=== PATIENT | female | born 1940 | race Caucasian/White ===

== ENCOUNTER 2019-12-18 21:44 | Inpatient (IN) | payer MEDICARE, SELFPAY ==
[2019-12-18 21:55] VITALS: BP 140/104; PULSE 112; RESP 14; TEMP 36.7; O2SAT 95; BMI 33.6
--- NOTE | 2019-12-18 22:07 | XR_ITS ---
WS: [id number] XR hip RT 2-3V wo/w pel* [id number] REASON FOR EXAM: fall FINDINGS: Degenerate changes of the right hip joint. No fractures of the hip are seen. No fractures of the visible right pelvis. There is marked osteopenic changes seen with the inferior ramus poorly identified. XR/XR hip RT 2-3V wo/w pel* [id number] IMPRESSION: No fractures of the right hip.
[2019-12-18 23:23] VITALS: BP 154/96; PULSE 117; RESP 15; O2SAT 95
[2019-12-18 23:59] VITALS: O2SAT 97
[2019-12-19] VITALS (7 sets, daily range): BP systolic 103–164; BP diastolic 56–87; PULSE 86–99; RESP 16–20; TEMP 36.4–37.1; O2SAT 91–95
--- NOTE | 2019-12-19 00:09 | ECG_ITS ---
Measurements Intervals [place] Rate: 98 P: 49 OK: 159 QRS: -30 QRSD: 104 T: 54 QT: 322 QTc: 413 SINUS RHYTHM POSSIBLE INFERIOR MYOCARDIAL INFARCTION , PROBABLY OLD [30 ms Q WAVE IN II/aVF] No previous ECG available for comparison Electronically Signed On 12-19-2019 20:04:14 CDT by Jacqueline Smith M.D. [email or web address]
--- NOTE | 2019-12-19 00:28 | CTR_ITS ---
PROCEDURE INFORMATION: Exam: CT Abdomen And Pelvis With Contrast Exam date and time: 12/19/2019 1:16 AM Age: 79 years old Clinical indication: Injury or trauma; Fall; Initial encounter; Blunt; Lower; Injury details: RT hip/pelvic pain TECHNIQUE: Imaging protocol: Computed tomography of the abdomen and pelvis with intravenous contrast. Radiation optimization: All CT scans at this facility use at least one of these dose optimization techniques: automated exposure control; mA and/or kV adjustment per patient size (includes targeted exams where dose is matched to clinical indication); or iterative reconstruction. Contrast material: OMNI 300; Contrast volume: 95 ml; Contrast route: IV; COMPARISON: CR XR hip RT 2-3V wo/w pel* [id number] 12/18/2019 10:22 PM RADIATION DOSE METRICS: Total DLP: 1087.26 mGy-cm FINDINGS: Heart: Slight cardiac prominence. Small pericardial effusion. Lungs: Calcified granuloma in the right lower lobe. Minimal stranding in the lung bases. Liver: No enhancing liver mass. Gallbladder and bile ducts: No calcified stones. No ductal dilation. Pancreas: Unremarkable pancreas. Spleen: No splenomegaly. Adrenals: No adrenal mass. Kidneys and ureters: High probability of multiple peripelvic cysts in the left renal sinus. Homogeneous water density in the 18 mm intracortical mass in the right kidney and similar low density in multiple smaller intracortical masses in the kidneys. No proximal ureteral dilatation or right hydronephrosis. Stomach and bowel: Positioning of essentially all of the stomach in the lower chest without distension. No small bowel obstruction. Slight air-fluid levels in the right colon, significance unclear. Possible developing rectal impaction. Appendix: Normal appendix. Intraperitoneal space: No free air. No significant free fluid in the peritoneal cavity. Vasculature: No aortic aneurysm or dissection. Lymph nodes: No enlarged nodes. Bladder: No obvious abnormality of the small bladder. Reproductive: Prominent decreased density measuring 25 HU within the upper endometrial cavity having a depth of 17 mm. Homogeneous water density in the 3 cm left ovarian cyst. Bones/joints: Comminuted acute fractures of the right superior and inferior pubic rami. Acute fracture line in the right sacral wing, also. No obvious transverse fracture line in the sacrum. No fractures in the acetabuli and proximal femurs. Old compression fractures. Partial bony bridging of a lower thoracic disc. Slight degeneration of other discs. Slight spondylolisthesis at L4-L5 and L5-S1. Minimal retrolisthesis at L1-L2. Soft tissues: Slight soft tissue density consistent with bruising in the subcutaneous fat in the lateral right hip region. Enlargement of the muscles in the medial right hip region, but no large hematoma in this area. Extensive extraperitoneal hematoma posterior to the lower anterior abdominal wall and anterior to the bladder along with hemorrhagic stranding in the extraperitoneal fat bilaterally along both sides of the bladder extending inferiorly along the right pelvic sidewall and posterior to the symphysis pubis. CT/CT abdomen pelvis w con* [id number] IMPRESSION: 1. Comminuted acute fractures of the right superior and inferior pubic rami associated with extensive extraperitoneal hemorrhage in the pelvis as detailed above. Acute right sacral fracture also present. 2. Positioning of essentially all of the stomach in the lower chest without strangulation. 3. Small pericardial effusion. Slight cardiac prominence. 4. Enlargement of the endometrial cavity for the patient's age containing a density of 25 HU, significance unclear. Follow-up non-emergent transvaginal pelvic sonography suggested for consideration. Left ovarian mass consistent with a simple cyst also evident. 5. Renal masses consistent with simple cysts. Other findings detailed above. Radiation Dose CTDIVOL = (mGy): DLP = 1087.26 (mGy-cm)
[2019-12-19 01:07] LABS: Hematocrit 34.7 % (37.0-47.0); Hemoglobin 11.3 g/dL (11.5-15.3); Mean Corpuscular HGB Conc 32.6 g/dL (30.0-36.0); Mean Corpuscular Hemoglobin 29.6 pg (28.0-34.0); Mean Corpuscular Volume 90.8 fL (81-99); Mean Platelet Volume 10.4 fL (7.4-10.4); Platelet Count 203 10^3/cmm (130-400); Red Blood Count 3.82 10^6/uL (4.1-5.3); Red Cell Distribution Width 12.8 % (12.1-15.1); White Blood Count 15.7 10^3/uL (4.0-10.0)
[2019-12-19 01:15] LABS: Alanine Aminotransferase 14 U/L (0-33); Albumin Level 3.9 g/dL (3.5-5.2); Alkaline Phosphatase 65 IU/L (35-105); Anion Gap 16.2 (5-19); Aspartate Amino Transferase 21 U/L (0-32); Blood Urea Nitrogen 15 mg/dL (8-23); Calcium 8.8 mg/dL (8.5-10.5); Carbon Dioxide 24 mmol/L (22-29); Chloride 106 mmol/L (98-107); Creatinine Clr Calc Pharmacy 53.9888; Glucose 160 mg/dL (65-115); Osmolality Calculated 294 mOsm/kg (285-295); Potassium 4.2 mmol/L (3.5-5.1); Sodium 142 mmol/L (136-145); Total Bilirubin 1.2 mg/dL (0.15-1.2); Total Protein 5.9 g/dL (6.6-8.7)
[2019-12-19 01:17] LABS: Troponin T (5th) Once 18 ng/mL (0-10)
[2019-12-19 01:25] LABS: Absolute Segmented Neutrophil 14.6 10/cmm (1.6-7.1); Lymphocytes 4 %; Monocytes Absolute 0.5 10^3/cmm (0.1-0.6); Segmented Neutrophils 93 %; Total Cells Counted 100 (0-100)
[2019-12-19 01:26] LABS: Platelet Estimate Normal (Normal)
[2019-12-19] MEDS: sodium chloride 0.9% 1,000 ML 999 ML IV (01:27)
[2019-12-19] MEDS: morphine 4 mg/mL SDV 1 mL IVP (01:30)
[2019-12-19] MEDS: ondansetron 2 mg/ML SDV 2 mL 4 MG IVP (01:31)
[2019-12-19] MEDS: iohexol 300 mg/mL 100 mL Btl IV (01:46)
[2019-12-19 01:49] LABS: Add Urine Microscopic? NO
--- NOTE | 2019-12-19 01:57 | ED_ITS ---
HPI - Fall General: Chief Complaint: Fall Stated Complaint: fall Time Seen by Provider: 12/18/19 22:07 History of Present Illness: HPI Narrative: 79-year-old female who fell at home, when she tripped over a step. She landed on her right hip/pelvis. She was experiencing pain, and could not bear weight. complaint: fall Onset (ago): minute(s) Fall from: standing Fall witnessed: no Place fall occurred: home Loss of consciousness: None Prolonged down time: no Symptoms prior to fall: none Context: tripped/slipped Location of injury: pelvis Location of injury - extremities: Right: thigh Quality: dull and aching Associated symptoms-after fall: Reports no associated symptoms and abdominal pain; Denies chest pain, confusion, headache(s), hematuria, neck pain or vertigo Review of Systems Const: Denies: fever or chills Eyes: Denies: change in vision ENMT: Denies: painful swallowing Card: Reports: edema; Denies: chest pain, palpitations or irregular heart rhythm Resp: Denies: shortness of breath, productive cough, non-productive cough or wheezing GI: Reports: abdominal pain; Denies: nausea, vomiting or rectal pain : Denies: painful urination, urinary frequency or blood in urine Musc: Denies: neck pain, back pain, redness or joint warmth Skin/Breast: Denies: rash, itching or redness Neuro: Denies: headache, dizziness, vertigo or confusion Psych: Denies: anxiety PFSH ED PFSH: Medical History (Updated 12/19/19 @ 04:21 by Donato Herbert DO) Aortic regurgitation Dyslipidemia Fracture of ankle Hypertension Mitral valve regurgitation Family History (Updated 12/19/19 @ 04:21 by Pérez Villatoro MD) Other CAD (coronary artery disease) Hypertension Social History Smoking and tobacco status: never smoked Physical Exam Const: GENERAL APPEARANCE: well developed ORIENTATION/CONSCIOUSNESS: Yes oriented to person, Yes oriented to place and Yes oriented to time HENMT: COMMON NORMALS: normocephalic HEAD & SCALP: normocephalic FACE & SINUS: normal facial exam NOSE: no nasal discharge Eye: COMMON NORMALS: PERRL, EOMs intact bilaterally and conjunctivae normal EYELID: eyelids normal CONJUNCTIVA: Yes conjunctivae normal PUPIL: Yes PERRL Neck/C-Spine: COMMON NORMALS: full ROM GENERAL: No tracheal deviation Chest: COMMONS NORMALS: inspection of chest normal CHEST: No tenderness Resp: COMMON NORMALS: clear to auscultation bilaterally EFFORT & INSPECTION: No tachypneic, No respiratory distress, No retractions, No uses accessory muscles and No tracheal deviation AUSCULTATION: clear to auscultation bilaterally, no rhonchi, no wheezes and lung sounds not diminished Cardio: COMMON NORMALS: regular rate and regular rhythm RATE: regular rate RHYTHM: regular rhythm HEART SOUNDS: no murmurs PERIPHERAL PULSES: radial pulses present GI: INSPECTION: No abdominal distension AUSCULTATION: No hyperactive bowel sounds and No hypoactive bowel sounds PALPATION: No guarding and No rigid PERCUSSION: no dullness to percussion and no tympanic to percussion Extremity: NARRATIVE EXTREMITY EXAM: Examination of the pelvis and right lower extremity reveals no pain on logroll testing. There is no pain on direct palpation of the hip. There is pain on palpation of the right ischium. Neuro: SENSORIUM/ORIENTATION: Yes oriented to person, Yes oriented to place and Yes oriented to time Psych: COMMON NORMALS: mental status grossly normal Skin: COMMON NORMALS: no rashes or lesions noted GENERAL SKIN EXAM: no rashes or lesions noted Course Vital Signs: Vital signs: Vital Signs Temperature 98.1 F 12/18/19 21:55 Pulse Rate 117 H 12/18/19 23:23 Respiratory Rate 18 12/19/19 01:30 Blood Pressure 154/96 12/18/19 23:23 Pulse Oximetry 97 12/18/19 23:59 MDM - Fall MDM Narrative: Medical decision making narrative: 79-year-old female. She presents after a fall at home. There was no prolonged downtime. She does have tenderness over her right pelvis. Right hip x-ray showed a likely inferior pubic ramus fracture which is confirmed by CT. Her white blood cell count is 15. Hemoglobin is 11.3. Other laboratory is benign. She is mildly tachycardic and normotensive. Her oxygen is mildly low. CT shows the superior/inferior pubic ramus fracture with an extensive amount of extraperitoneal blood. She'll be observed for PT, watch H/H, etc. Lab Data: Labs: Lab Results 12/19/19 12/19/19 12/19/19 Range/Units 00:50 00:50 00:50 WBC 15.7 H (4.0-10.0) 10^3/ uL RBC 3.82 L (4.1-5.3) 10^6/u L Hgb 11.3 L (11.5-15.3) g/dL Hct 34.7 L (37.0-47.0) % MCV 90.8 (81-99) fL MCH 29.6 (28.0-34.0) pg MCHC 32.6 (30.0-36.0) g/dL RDW 12.8 (12.1-15.1) % Plt Count 203 (130-400) 10^3/c mm MPV 10.4 (7.4-10.4) fL Total Counted 100 (0-100) Segmented Neutroph ils 93 % Lymphocytes (Manua l) 4 % Monocytes (Manual) 3.0 % Absolute Monocytes 0.5 (0.1-0.6) 10^3/c mm Platelet Estimate Normal (Normal) Sodium 142 (136-145) mmol/L Potassium 4.2 (3.5-5.1) mmol/L Chloride 106 (98-107) mmol/L Carbon Dioxide 24 (22-29) mmol/L Anion Gap 16.2 (5-19) BUN 15 (8-23) mg/dL Creatinine 0.6 (0.5-0.9) mg/dL Glucose 160 H (65-115) mg/dL Calculated Osmolal ity 294 (285-295) mOsm/k g Calcium 8.8 (8.5-10.5) mg/dL Total Bilirubin 1.2 (0.15-1.2) mg/dL AST 21 (0-32) U/L ALT 14 (0-33) U/L Alkaline Phosphata se 65 (35-105) IU/L Troponin T Gen 5 n g/L 18 H (0-10) ng/mL Total Protein 5.9 L (6.6-8.7) g/dL Albumin 3.9 (3.5-5.2) g/dL Globulin 2.0 (1.3-4.6) g/dL Urine Color (Yellow) Urine Appearance (CLEAR) Urine pH (5-7) Ur Specific Gravit y (1.005-1.030) Urine Protein (Negative) Urine Glucose (UA) (Normal) Urine Ketones (Negative) Urine Blood (Negative) Urine Nitrate (Negative) Urine Bilirubin (NEGATIVE) Urine Urobilinogen (Negative) mg/dL Ur Leukocyte Cassi ase (Negative) 12/19/19 Range/Units 01:39 WBC (4.0-10.0) 10^3/ uL RBC (4.1-5.3) 10^6/u L Hgb (11.5-15.3) g/dL Hct (37.0-47.0) % MCV (81-99) fL MCH (28.0-34.0) pg MCHC (30.0-36.0) g/dL RDW (12.1-15.1) % Plt Count (130-400) 10^3/c mm MPV (7.4-10.4) fL Total Counted (0-100) Segmented Neutroph ils % Lymphocytes (Manua l) % Monocytes (Manual) % Absolute Monocytes (0.1-0.6) 10^3/c mm Platelet Estimate (Normal) Sodium (136-145) mmol/L Potassium (3.5-5.1) mmol/L Chloride (98-107) mmol/L Carbon Dioxide (22-29) mmol/L Anion Gap (5-19) BUN (8-23) mg/dL Creatinine (0.5-0.9) mg/dL Glucose (65-115) mg/dL Calculated Osmolal ity (285-295) mOsm/k g Calcium (8.5-10.5) mg/dL Total Bilirubin (0.15-1.2) mg/dL AST (0-32) U/L ALT (0-33) U/L Alkaline Phosphata se (35-105) IU/L Troponin T Gen 5 n g/L (0-10) ng/mL Total Protein (6.6-8.7) g/dL Albumin (3.5-5.2) g/dL Globulin (1.3-4.6) g/dL Urine Color Yellow (Yellow) Urine Appearance Clear (CLEAR) Urine pH 6 (5-7) Ur Specific Gravit y 1.015 (1.005-1.030) Urine Protein Neg (Negative) Urine Glucose (UA) Norm (Normal) Urine Ketones Negative (Negative) Urine Blood Neg (Negative) Urine Nitrate Negative (Negative) Urine Bilirubin Neg (NEGATIVE) Urine Urobilinogen Norm (Negative) mg/dL Ur Leukocyte Cassi ase Negative (Negative) Discharge Plan Discharge Patient Disposition: Placed in Observation Clinical Impression: Pubic ramus fracture Qualifiers: Encounter type: initial encounter Fracture type: closed Laterality: right Qualified Code(s): S32.591A - Other specified fracture of right pubis, initial encounter for closed fracture Condition: Stable Referrals: Marybeth Gutierrez MD [Primary Care Provider] - Coding Level of Care Code ED Grease And Tallow Pumper for Chg Fwd Exam Comprehensive
[2019-12-19 02:05] LABS: Bilirubin Urine Neg (NEGATIVE); Blood Urine Neg (Negative); Glucose Urine UA Norm (Normal); Ketones Urine Negative (Negative); Leukocyte Esterase Urine Negative (Negative); Nitrate Urine Negative (Negative); Protein Urine Neg (Negative); Specific Gravity, Urine 1.015 (1.005-1.030); Urine Appearance Clear (CLEAR); Urine Color Yellow (Yellow); Urobilinogen Urine Norm (Negative); pH Urine 6 (5-7)
[2019-12-19] MEDS: sodium chloride 0.9% 1,000 ML 150 ML IV (03:48)
--- NOTE | 2019-12-19 04:16 | P.HP_ITS ---
Providers/Chief Complaint Primary Care Provider: Marybeth Gutierrez MD Chief Complaint: fall History of Present Illness Collette Lemos is a 79 year old female who does not carry any significant past medical history other than hypertension coming in after sustaining a mechanical fall. Patient is stating that around evening, she fell on stairs outside her house by losing her balance, she did not experience any seizure, chest pain, loss of consciousness. She was not able to bear weight on right leg, because of excruciating pain she came to the ER for evaluation. Diagnostics in the ER revealed tachycardia, hypertension, CT reveals superior inferior pubic rami fracture on right side with extraperitoneal hemorrhage. At the time of my interview patient is doing well, hemodynamically stable, no active pain, she is sitting in a wheelchair. She lives alone and wants to avoid rehab. Review of Systems Const: Denies: fever or chills Eyes: Denies: change in vision ENMT: Denies: throat pain Card: Denies: chest pain Resp: Denies: shortness of breath GI: Denies: abdominal pain : Denies: flank pain Musc: Reports: back pain, extremity pain, joint pain and limited range of motion; Denies: neck pain Skin/Breast: Denies: rash, itching, skin pain or new lesion Neuro: Denies: headache Psych: Denies: anxiety Endo: Denies: excessive urination Cole/Lymph: Denies: easy bruising All/Imm: Denies: hives Medications/Allergies Allergies Allergy/AdvReac Type Severity Reaction Status Date / Time No Known Allergies Allergy Verified 12/18/19 21:59 PFSH Acute PFSH: Medical History Aortic regurgitation Dyslipidemia Fracture of ankle Hypertension Mitral valve regurgitation Surgical History (Updated 12/19/19 @ 05:00 by Pérez Villatoro MD) History of arthroplasty of right ankle Family History Other CAD (coronary artery disease) Hypertension Social History Smoking and tobacco status: never smoked Alcohol intake: never Substance/Drug Use: never Lives independently: Yes Housing: House Vitals/I&O/Wt Last Vital Signs Temp 98.1 F 12/18/19 21:55 Pulse 117 H 12/18/19 23:23 Resp 18 12/19/19 01:30 BP 154/96 12/18/19 23:23 Pulse Ox 97 12/18/19 23:59 Weight last 48 hrs Weight 80.739 kg Physical Exam Narrative: EXAM NARRATIVE: Head to toe examination Very pleasant female currently sitting without active discomfort in a wheelchair Normal hemodynamics EOMI, PERRLA S1, S2 no tachycardia, grade 2/6 systolic murmur left intercostal space fourth Abdomen soft, mild petechiae around pelvic area, no active bleeding, no signs of peritonitis Neurologically nonfocal exam Lungs are clear to auscultation Dorsalis pedis pulses 1+ bilaterally Appropriate mood and affect Limited range of motion of right lower extremity Pertinent negatives No active bleeding No hemodynamic instability No active pain No pain while sitting in her wheelchair Data : 12/19/19 00:50 12/19/19 00:50 A&P Assessment and plan (1) Pubic ramus fracture: Status: Acute Qualifiers: Encounter type: initial encounter Fracture type: closed Laterality: right Qualified Code(s): S32.591A - Other specified fracture of right pubis, initial encounter for closed fracture (2) Fall (on) (from) other stairs and steps, initial encounter: Status: Acute Additional A&P Information Right-sided superior and inferior pubic rami fracture with extensive extraperitoneal hemorrhage No active pain No active hemodynamic instability Patient sustained a fall after losing her balance, she is denying history of arrhythmia, chest pain, NH or CHF or seizures Analgesia with Tylenol and morphine with bowel regimen No acute indication for orthopedic consult she might need outpatient follow-up I would avoid adding DVT prophylaxis at this point because of extraperitoneally hemorrhage, at the time of discharge she might need DVT prophylaxis Essential hypertension: I would hold her antihypertensives because of extraperitoneal hemorrhage would like to monitor for few hours and if she become s hypertensive we will consider re-adding it Hiatal hernia without active exacerbation Incidental finding of pericardial effusion no hemodynamic instability DVT prophylaxis: Because of extraperitoneal hemorrhage would avoid for now however at the time of discharge she might need prophylaxis Cardiac diet Full code Physical therapy, evaluation in the morning 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
[2019-12-19] MEDS: sennosides-docusate Tablet 1 TAB PO (08:49)
[2019-12-19 15:52] LABS: Basophils % 0.2 %; Eosinophils % 0.1 %; Hematocrit 30.9 % (37.0-47.0); Hemoglobin 9.8 g/dL (11.5-15.3); Lymphocytes # 1.2 10^3/uL (0.8-4.8); Lymphocytes % 11.3 %; Mean Corpuscular HGB Conc 31.7 g/dL (30.0-36.0); Mean Corpuscular Volume 91.4 fL (81-99); Mean Platelet Volume 10.6 fL (7.4-10.4); Monocytes # 0.6 10^3/uL (0.2-0.9); Monocytes % 5.6 %; Neutrophils # 8.8 10^3/uL (1.8-7.7); Neutrophils % 82.4 %; Nucleated Red Blood Cells % 0 %; Platelet Count 178 10^3/cmm (130-400); Red Blood Count 3.38 10^6/uL (4.1-5.3); Red Cell Distribution Width 13.2 % (12.1-15.1); White Blood Count 10.7 10^3/uL (4.0-10.0)
--- NOTE | 2019-12-19 17:01 | P.PN_ITS ---
Subjective Subjective: Interval history: Pain is currently well controlled, however does report ongoing soreness in the pelvic area.. Patient is able to ambulate within the room with the help of a walker. Hemoglobin this afternoon noted to be 9.8, dropped about 2 units since admission. No hemodynamic compromise at this present time. Hematoma at the site does not appear to have increased in size. Medications: Reviewed: Yes Vitals/I&O/Wt Last Vital Signs Temp 98.7 F 12/19/19 15: Pulse 99 12/19/19 15:27 Resp 17 12/19/19 15:27 BP 110/56 12/19/19 15: Pulse Ox 94 12/19/19 15:27 12/19/19 12/19/19 12/19/19 06:59 14:59 22:59 Intake Total 240 / 240 Balance 240 / 240 Weight last 48 hrs Weight 80.739 kg Physical Exam Narrative: EXAM NARRATIVE: GEN: Awake, alert and oriented, no acute distress CVS: S1S2 N RS: CTA B/L Abd: Soft, nt/nd , bs+ RAW HIDE TRIMMER: no focal neuro deficits Data : 12/19/19 15:29 12/19/19 00:50 A&P Assessment and plan (1) Pubic ramus fracture: Status: Acute Qualifiers: Encounter type: initial encounter Fracture type: closed Laterality: right Qualified Code(s): S32.591A - Other specified fracture of right pubis, initial encounter for closed fracture (2) Fall (on) (from) other stairs and steps, initial encounter: Status: Acute (3) Pelvic hematoma: Status: Acute Additional A&P Information # Right-sided superior and inferior pubic rami fracture Most of these above fractures tend to be osteoporotic fractures and old age. Patient sustained a fall after losing her balance, she is denying history of arrhythmia, chest pain, [place] or CHF or seizures Currently patient is able to ambulate with help of a walker. We will continue to encourage ambulation. Appreciate OT recommendations. Analgesia with Tylenol and morphine with bowel regimen. Pain is currently well controlled. #Evidence of extraperitoneal hemorrhage as a result of the fall. Hemoglobin upon presentation was around 11, dropped about 2 units since admission. While this may be effects of initial hemoconcentration given that leukocytosis was also present, however will rule out any ongoing bleed by monitoring H&H again tomorrow morning. Patient is currently hemodynamically stable. We will hold off on any transfusion at this time. #Essential hypertension: Currently blood pressure is maintained on antihypertensives. We will continue to hold. 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 DVT prophylaxis: SCDs. No pharmacological anticoagulation because of the hematoma. Cardiac diet Full code Dispo: home with [facility] Attestations Medical Necessity Statement*: 2 unit hemoglobin drop noted today, will need close monitoring of H&H tomorrow morning. Coding Level of Care Code Acute Escort Car Driver for Rhonda Miltond Diagnoses Pubic ramus fracture S32.591A Encounter type: initial encounter Fracture type: closed Laterality: right Fall (on) (from) other stairs and steps, initial encounter W10.8XXA Pelvic hematoma
[2019-12-19] MEDS: acetaminophen 325 mg Tablet 650 MG PO (19:01)
[2019-12-20] VITALS (7 sets, daily range): BP systolic 97–110; BP diastolic 56–71; PULSE 87–100; RESP 18–20; TEMP 36.6–37.6; O2SAT 90–96
[2019-12-20 05:21] LABS: Basophils % 0.2 %; Eosinophils # 0.1 10^3/uL (0.0-0.8); Eosinophils % 1.7 %; Hematocrit 27.1 % (37.0-47.0); Hemoglobin 8.5 g/dL (11.5-15.3); Lymphocytes # 1.4 10^3/uL (0.8-4.8); Lymphocytes % 20.6 %; Mean Corpuscular HGB Conc 31.4 g/dL (30.0-36.0); Mean Corpuscular Hemoglobin 28.8 pg (28.0-34.0); Mean Corpuscular Volume 91.9 fL (81-99); Mean Platelet Volume 10.4 fL (7.4-10.4); Monocytes # 0.3 10^3/uL (0.2-0.9); Monocytes % 4.8 %; Neutrophils # 4.8 10^3/uL (1.8-7.7); Neutrophils % 72.2 %; Nucleated Red Blood Cells % 0 %; Platelet Count 142 10^3/cmm (130-400); Red Blood Count 2.95 10^6/uL (4.1-5.3); Red Cell Distribution Width 13.2 % (12.1-15.1); White Blood Count 6.6 10^3/uL (4.0-10.0)
--- NOTE | 2019-12-20 08:40 | P.PN_ITS ---
Subjective Subjective: Interval history: Patient continues to have no pain with movement. Pain is present but tolerable for the most part at other times. Decreased discomfort in her lower abdomen. Did well getting up to bed side and sitting in chair as well as working with therapy. Denies any chest pain, shortness of breath or dizziness. Slept okay. No bowel movement. Medications: Reviewed: Yes Medication Review Details: Only oral medication for pain is Tylenol presently plus some IV morphine which she has not required any. On Senokot. Home meds not currently on board. Vitals/I&O/Wt Last Vital Signs Temp 98.1 F 12/20/19 07:06 Pulse 90 12/20/19 07:06 Resp 18 12/20/19 07:06 BP 110/60 12/20/19 07:06 Pulse Ox 96 12/20/19 07:06 Blood pressure has generally ranged from mid 90s to mid teens systolic over 60s to 70s diastolic for the last 24 hours 12/19/19 12/20/19 12/20/19 22:59 06:59 14:59 Intake Total 480 / 720 Output Total 400 / 400 Balance 480 / 720 -400 / 320 Weight last 48 hrs Weight 80.739 kg Physical Exam Const: OTHER: Alert, oriented x3, cooperative HENMT: OTHER: Normocephalic atraumatic Eye: OTHER: Pupils equally round and reactive to light Resp: OTHER: Clear to auscultation bilaterally rales rhonchi or wheezes noted, no accessory muscle use noted Cardio: OTHER: Regular rate and rhythm, no murmurs gallops or rubs. Pulses 2+ and equal at both feet. GI: OTHER: Abdomen soft, tender in the right lower quadrant but without rebound or guarding, positive bowel sounds : OTHER: Normal external genitalia, mild erythema in the left groin but no other evidence of rashes or bruising visible Extremity: NARRATIVE EXTREMITY EXAM: Limitation in movement right lower extremity at the hip and knee due to pain but able to move right ankle in all directions. No gross edema noted. Patient is right hand with some edema at the PIP of the fourth digit with some decreased range of motion with flexion. Neuro: OTHER: Strength is equal in both feet. Sensation is intact in both feet. Handgrip slightly decreased in the right primarily in the fourth digit th ough. Face symmetric. Skin: NARRATIVE SKIN EXAM: Bruising noted to the right hand primarily involving the fourth digit and to a lesser degree the fifth digit, extending up to the dorsum of the hand midway. Patient also has some bruising on her right forearm laterally. On her right hip, there is bruising laterally extending about care home down although it is not diffuse. No bruising on the abdomen. Data : 12/20/19 05:11 12/19/19 00:50 A&P Assessment and plan (1) Acute blood loss anemia: With continued drop in hemoglobin, related to pelvic hematoma Status: Acute (2) Pubic ramus fracture: Superior and inferior pubic rami on the right fractures, along with right sacral fracture Status: Acute Qualifiers: Encounter type: initial encounter Fracture type: closed Laterality: right Qualified Code(s): S32.591A - Other specified fracture of right pubis, initial encounter for closed fracture (3) Fall (on) (from) other stairs and steps, initial encounter: mechanical, no signs of proceeding signs or symptoms Status: Acute (4) Pelvic hematoma: Related to fall/fracture Status: Acute (5) Hypertension: Chronically on Benicar HCT Status: Chronic Qualifiers: Hypertension type: essential hypertension Qualified Code(s): I10 - Essential (primary) hypertension (6) Dyslipidemia: chronically on krill oil Status: Chronic Additional A&P Information Chronic benzodiazepine use at bedtime Continue PT and OT Serial H&H, if continues to drop we will need to consider reimaging, does not currently need transfusion Review of home medications, will likely only resume alprazolam but changed to as needed and hold antihypertensive, fish oil and co-Q10 Does not sound like low blood pressure contributed to fall but something to keep in mind Will need arrangements for walker at home as well as some home health for evaluation of other potential safety measures. She does have a bedside commode from prior family needs. Her granddaughter will come and stay with her for safety. DVT prophylaxis: SCDS, no pharmacological prophylaxis due to hematoma Full code Cardiac diet No Méndez or linezs Dispo: home with [facility] Attestations Medical Necessity Statement*: With continued drop in hemoglobin, will change to inpatient status and continue to monitor. Risk of continued decline in hemoglobin and associated complications. Coding Level of Care Code Acute Statistician Theoretical for Nancy Orozco Diagnoses Acute blood loss anemia D62 Pubic ramus fracture S32.591A Encounter type: initial encounter Fracture type: closed Laterality: right Fall (on) (from) other stairs and steps, initial encounter W10.8XXA Pelvic hematoma Hypertension I10 Hypertension type: essential hypertension Dyslipidemia E78.5
[2019-12-20] MEDS: sennosides-docusate Tablet 1 TAB PO (09:14)
--- NOTE | 2019-12-20 10:30 | PC.CHAP ---
Pastoral Care Encounter/Spiritual Assessment Type of Contact [] Declined casting machine control board operator visit [] Patient/Family/Request visit [] Outpatient visit [] Follow-up visit [] Physician referral [] Code/Alert [x] Routine visit [] Staff referral [] Actively dying [] Patient sleeping [] Family support [] [] Out of room [] Palliative care [] [] Receiving care in room [] Pre-surgical visit [] Trauma [] Long length of stay [] ICU visit [] Other: Relational/Emotional Strength [] Patient feels connected with others/family/visitors/staff [] Distress [] Loneliness/isolation [] Abandonment Spirituality of Patient [] Person of Latanya [] Attends Yarsani of their Latanya [x] Believes in Prayer [] Reads Bible or Muslim materials [] There are Spiritual issues to be addressed Economic Adviser Interventions [x] Prayer [] Active listening [] Non-anxious presence [] Spiritual/emotional support [] Crisis/trauma care [] Spiritual counseling [] Bereavement support [] Provided bereavement packet [] Provided Bible/devotional materials [] Provided toy/stuffed animal, coloring book to patient or family member [] Provided Communion [] Anointing/[place] [] Salvation [x] Completed spiritual assessment [] Other: Impact on Illness or Injury [] Angry [] Fearful [x] Anxious [] Often cries [] Exhaustion [] Unable to work [] Unable to attend methodist [] Unable to walk/stand [] Unable to read [] Unable to drive [] Unable to eat/drink [] Unable to sleep [] Unable to be with family [] Patient intubated [] Other: Summary Patient setting in chair having breakfast. Patient feeling stronger. Showing concern regarding fractured pelvis, but believing in full recovery Time spent with patient 20 min
[2019-12-20 14:41] LABS: Basophils % 0.2 %; Eosinophils # 0.1 10^3/uL (0.0-0.8); Eosinophils % 1.7 %; Hematocrit 29.8 % (37.0-47.0); Hemoglobin 9.4 g/dL (11.5-15.3); Lymphocytes % 11.7 %; Mean Corpuscular HGB Conc 31.5 g/dL (30.0-36.0); Mean Corpuscular Hemoglobin 29.7 pg (28.0-34.0); Mean Platelet Volume 10.5 fL (7.4-10.4); Monocytes # 0.5 10^3/uL (0.2-0.9); Monocytes % 6.3 %; Neutrophils # 6.5 10^3/uL (1.8-7.7); Neutrophils % 79.4 %; Nucleated Red Blood Cells % 0 %; Platelet Count 168 10^3/cmm (130-400); Red Blood Count 3.17 10^6/uL (4.1-5.3); Red Cell Distribution Width 13.3 % (12.1-15.1); White Blood Count 8.2 10^3/uL (4.0-10.0)
--- NOTE | 2019-12-20 14:47 | PC.OT ---
Patient laying in bed upon therapist's entry. Patient reports that she just got back into bed after finishing with physical therapy, and requests treatment be deferred until after she has had time to rest, even if that means waiting until tomorrow morning to receive treatment. Patient reports interest in learning more about use of hip kit, as well as having wheeled walker ordered for her discharge home. Will plan to treat patient tomorrow in the A.M.
--- NOTE | 2019-12-20 17:20 | P.CONIM_ITS ---
Providers/Reason For Consult Consulting Physican/Specialty*: Ronald Jeffrey, orthopedic surgery Reason for Consult*: Pelvic fracture Attending Physician: Keri Tam MD Primary Care Provider: Marybeth Gutierrez MD History of Present Illness History of Present Illness Collette Lemos is a 79 year old female really with no significant medical history. She reportedly fell outside her home on a step landing on her right side with immediate pain. She was brought to the emergency room where radiographs revealed fractures of her pelvis and superior and inferior pubic rami. She was admitted for pain management and physical therapy. He was mobilized today to a chair and able to take a few steps up. She lives at home alone but states she has family who will build to come stay with her Meds/Allergies Home Medications and Allergies Home Medications Medication Instructions Recorded Confirmed Last Taken Type alprazolam 0.25 mg PO QPM 12/19/19 12/19/19 Unknown History coenzyme Q10 [CoQ-10] 100 mg PO DAILY 12/19/19 12/19/19 Unknown History flvua-[id number]-mhk-gts-wmhvknj-ast 1 cap PO DAILY 12/19/19 12/19/19 Unknown History [MegaRed [place]-3 Krill Oil] olmesartan-hydrochlorothiazide 1 tab PO QPM 12/19/19 12/19/19 12/18/19 16:00 History [Benicar HCT] Allergies Allergy/AdvReac Type Severity Reaction Status Date / Time No Known Allergies Allergy Verified 12/18/19 21:59 Current Medications Current Medications Generic Name Dose Route Start Last Admin Trade Name Freq PRN Reason Stop Dose Admin Acetaminophen 650 mg 12/19/19 05:01 12/19/19 19:01 Tylenol PO 650 mg Q4H PRN Administration mild pain Senna/Docusate Sodium 1 tab 12/19/19 09:00 12/20/19 09:14 Senna-S PO 1 tab DAILY RADHA Administration PFSH Acute PFSH: Medical History (Updated 12/20/19 @ 17:25 by Ronald Jeffrey MD) Aortic regurgitation Dyslipidemia Hypertension Mitral valve regurgitation Surgical History (Updated 12/20/19 @ 08:57 by Keri Tam MD) History of arthroplasty of right ankle due to fracture Family History Other CAD (coronary artery disease) Hypertension Social History Smoking and tobacco status: never smoked Alcohol intake: never Substance/Drug Use: never Lives independently: Yes Housing: House Vitals/I&O/Wt Last Vital Signs Temp 98.5 F 12/20/19 15:09 Pulse 98 12/20/19 15:09 Resp 20 H 12/20/19 15:09 BP 103/71 12/20/19 15:09 Pulse Ox 94 12/20/19 15:09 12/20/19 12/20/19 12/20/19 06:59 14:59 22:59 Intake Total 720 / 720 Output Total 400 / 400 Balance -400 / 320 720 / 720 Weight last 48 hrs Weight 178 lb Physical Exam Narrative: EXAM NARRATIVE: The patient is a pleasant female supine in bed in no obvious distress. She answers questions appropriately. I can appreciate no instability of her pelvis with open book stress testing. There is no vertical instability I can appreciate. She has pain with extremes of motion of the right hip. She has tenderness to palpation over right anterior hip and over her right posterior sacrum she has a palpable dorsalis pedis pulse bilaterally and her sensation is intact in both lower extremities bilaterally. There is no tenderness or pain with range of motion of her upper extremities. She has no tenderness over her cervical thoracic or lumbar spine. Data Imaging^: Xray Ortho: My impression: I reviewed his CT scan of the pelvis dated 12/19/2019. The patient has fractures of her right superior and inferior pubic rami and a nondisplaced fracture right sacral ala. There is really no significant displacement I can see. She is noted to have extensive hematoma formation, extraperoteoneal.her pubic rami. A&P Assessment and plan (1) Multiple closed pelvic fractures without disruption of pelvic ring: The patient's fracture appears to be stable on physical exam and with radiographs. I recommended continued mobilization as tolerated. She may likely need group home transfer Status: Acute (2) Pelvic hematoma: Patient has a hematoma associate with a fracture and has had a drop in her hemoglobin. I suspect the bleeding is predominantly veinous and should subside. Certainly the absence of displacement I would not anticipate more aggressive procedures being required. Status: Acute Consult Attestations Medical Necessity Statement: Patient with pain with mobilization and unable to bear weight. May ultimately require group home placement Coding Level of Care Code Acute Field Placement Director for Chg Fwd Diagnoses Multiple closed pelvic fractures without disruption of pelvic ring S32.82XA Pelvic hematoma
[2019-12-21] VITALS: BP 107/69; PULSE 105; RESP 20; TEMP 36.9; O2SAT 94
[2019-12-21 04:00] VITALS: BP 112/71; PULSE 97; RESP 20; TEMP 36.8; O2SAT 95
[2019-12-21 05:21] LABS: Basophils % 0.2 %; Eosinophils # 0.2 10^3/uL (0.0-0.8); Eosinophils % 2.5 %; Hematocrit 25.7 % (37.0-47.0); Hemoglobin 8.3 g/dL (11.5-15.3); Lymphocytes # 1.2 10^3/uL (0.8-4.8); Lymphocytes % 18.9 %; Mean Corpuscular HGB Conc 32.3 g/dL (30.0-36.0); Mean Corpuscular Hemoglobin 30.1 pg (28.0-34.0); Mean Corpuscular Volume 93.1 fL (81-99); Mean Platelet Volume 10.6 fL (7.4-10.4); Monocytes # 0.4 10^3/uL (0.2-0.9); Monocytes % 6.7 %; Neutrophils # 4.3 10^3/uL (1.8-7.7); Nucleated Red Blood Cells % 0 %; Platelet Count 148 10^3/cmm (130-400); Red Blood Count 2.76 10^6/uL (4.1-5.3); Red Cell Distribution Width 13.4 % (12.1-15.1); White Blood Count 6.1 10^3/uL (4.0-10.0)
[2019-12-21 07:35] VITALS: BP 116/73; PULSE 95; RESP 16; TEMP 36.9; O2SAT 94
[2019-12-21] MEDS: sennosides-docusate Tablet 1 TAB PO (08:41)
--- NOTE | 2019-12-21 10:35 | P.PN_ITS ---
Vitals/I&O/Wt Last Vital Signs Temp 98.4 F 12/21/19 07:35 Pulse 95 12/21/19 07:35 Resp 16 12/21/19 07:35 BP 116/73 12/21/19 07:35 Pulse Ox 94 12/21/19 07:35 12/20/19 12/21/19 12/21/19 22:59 06:59 14:59 Intake Total 480 / 480 Output Total 0 / 0 250 / 250 Balance 0 / 720 -250 / 470 480 / 480 Data : 12/21/19 05:05 12/19/19 00:50 Coding Level of Care Code Acute Digital Art Director for Chg Ernesto
[2019-12-21 11:22] VITALS: BP 119/76; PULSE 91; RESP 18; TEMP 36.6; O2SAT 97
--- NOTE | 2019-12-21 12:06 | PC.CHAP ---
Pastoral Care Encounter/Spiritual Assessment Type of Contact [] Declined elevator operator service visit [] Patient/Family/Request visit [] Outpatient visit [] Follow-up visit [] Physician referral [] Code/Alert [x] Routine visit [] Staff referral [] Actively dying [] Patient sleeping [] Family support [] [] Out of room [] Palliative care [] [x] Receiving care in room [] Pre-surgical visit [] Trauma [] Long length of stay [] ICU visit [] Other: Relational/Emotional Strength [x] Patient feels connected with others/family/visitors/staff [] Distress [] Loneliness/isolation [] Abandonment Spirituality of Patient [x] Person of Latanya [] Attends Zoroastrianism of their Latanya [x] Believes in Prayer [] Reads Bible or Confucianist materials [] There are Spiritual issues to be addressed Machine Ceramic Coater Interventions [x] Prayer [x] Active listening [x] Non-anxious presence [x] Spiritual/emotional support [] Crisis/trauma care [x] Spiritual counseling [] Bereavement support [] Provided bereavement packet [] Provided Bible/devotional materials [] Provided toy/stuffed animal, coloring book to patient or family member [] Provided Communion [] Anointing/[place] [] Salvation [x] Completed spiritual assessment [] Other: Impact on Illness or Injury [] Angry [] Fearful [] Anxious [] Often cries [] Exhaustion [] Unable to work [] Unable to attend lutheran [] Unable to walk/stand [] Unable to read [] Unable to drive [] Unable to eat/drink [] Unable to sleep [] Unable to be with family [] Patient intubated [] Other: Summary she fell, has a good attitude, needs recovery in time, looking forward to going home Time spent with patient 10 mins
[2019-12-21 15:23] VITALS: BP 136/72; PULSE 97; RESP 18; TEMP 36.8; O2SAT 94
[2019-12-21 16:05] LABS: Hematocrit 28.6 % (37.0-47.0)
--- NOTE | 2019-12-21 17:30 | P.PN_ITS ---
Subjective Subjective: Interval history: Doing well, no new complaints. Denies any chest pain, shortness of breath or dizziness. Hemoglobin this morning was down to 8.3. Eating well. Medications: Reviewed: Yes Vitals/I&O/Wt Last Vital Signs Temp 98.2 F 12/21/19 15:23 Pulse 97 12/21/19 15:23 Resp 18 12/21/19 15:23 BP 136/72 12/21/19 15:23 Pulse Ox 94 12/21/19 15:23 12/21/19 12/21/19 12/21/19 06:59 14:59 22:59 Intake Total 720 / 720 Output Total 250 / 250 Balance -250 / 470 720 / 720 Physical Exam Const: OTHER: Alert, oriented x3, cooperative Resp: OTHER: Clear to auscultation bilaterally no rales, rhonchi or wheezes noted, no accessory muscle use noted Cardio: OTHER: Regular rate and rhythm, no murmurs gallops or rubs. Pulses equal at both feet. GI: OTHER: Abdomen soft, not as tender in RLQ today, positive bowel sounds Extremity: NARRATIVE EXTREMITY EXAM: Sitting up in chair at time of examination. Able to move knees and ankles without difficulty in this position. No pitting edema in the distal extremities. Right hand not as swollen Neuro: OTHER: Speech clear, face symmetric, moves all extremities Skin: NARRATIVE SKIN EXAM: No significant changes in bruising to right hand and forearm nor right hip. Data : 12/21/19 15:30 12/19/19 00:50 A&P Assessment and plan (1) Acute blood loss anemia: With continued drop in hemoglobin noted this morning, related to pelvic hematoma. Stable this afternoon. Status: Acute (2) Pubic ramus fracture: Superior and inferior pubic rami on the right fractures, along with right sacral fracture, nondisplaced Status: Deleted Qualifiers: Encounter type: initial encounter Fracture type: closed Laterality: right Qualified Code(s): S32.591A - Other specified fracture of right pubis, initial encounter for closed fracture (3) Fall (on) (from) other stairs and steps, initial encounter: mechanical, no signs of proceeding signs or symptoms Status: Acute (4) Pelvic hematoma: Related to fall/fracture Status: Acute (5) Hypertension: Chronically on Benicar HCT Status: Chronic Qualifiers: Hypertension type: essential hypertension Qualified Code(s): I10 - Essential (primary) hypertension (6) Dyslipidemia: Chronically on krill oil Status: Chronic Additional A&P Information Chronic benzodiazepine use at bedtime Continue PT and OT Recheck hemoglobin in the morning Remains off of home Benicar HCT, will continue to hold for the moment but anticipate being able to resume tomorrow Keep alprazolam as as needed rather than scheduled Has been typed but hopefully will not need transfusion She will will probably need some home health for continued PT OT and monitoring of her hemoglobin under the current conditions. She is usually very active and able to drive herself but not safe for driving at the moment. She does live alone. She has family that can assist when needed but are not always there. Will need a walker at home, has a bedside commode and a granddaughter will help her. DVT prophylaxis: SCDS, no pharmacological prophylaxis due to hematoma Full code Cardiac diet No Méndez or lines Dispo: home with Attestations Medical Necessity Statement*: Requires ongoing inpatient stay for continued monitoring given persistent drop of H&H this morning. If remains stable tomorrow anticipate discharge home with home health. Coding Level of Care Code Acute Data Center Technician for Nancy Orozco Diagnoses Acute blood loss anemia D62 Pubic ramus fracture S32.591A Encounter type: initial encounter Fracture type: closed Laterality: right Fall (on) (from) other stairs and steps, initial encounter W10.8XXA Pelvic hematoma Hypertension I10 Hypertension type: essential hypertension Dyslipidemia E78.5
[2019-12-21 20:00] VITALS: BP 124/60; PULSE 100; RESP 20; TEMP 37.1; O2SAT 96
[2019-12-21] MEDS: TRAMadol 50 mg Tablet PO (20:53)
[2019-12-22] VITALS: BP 118/70; PULSE 98; RESP 24; TEMP 36.9; O2SAT 92
[2019-12-22 04:00] VITALS: BP 107/71; PULSE 93; RESP 20; TEMP 36.8; O2SAT 92
[2019-12-22 05:18] LABS: Hematocrit 24.6 % (37.0-47.0); Hemoglobin 7.8 g/dL (11.5-15.3)
[2019-12-22 07:27] VITALS: BP 119/76; PULSE 89; RESP 16; TEMP 36.8; O2SAT 94
[2019-12-22] MEDS: sennosides-docusate Tablet 1 TAB PO (08:50)
[2019-12-22 10:18] VITALS: BP 121/82; PULSE 98; RESP 16; TEMP 37; O2SAT 97
--- NOTE | 2019-12-22 11:00 | P.PN_ITS ---
Subjective Subjective: Interval history: Patient continues to do well. Denies any dizziness, shortness of breath, chest pain. She was actually able to get up last night after she had a pain pill and move around a bit better because of the pain medication being on board. Denies any hematuria, hematochezia, melena. Has had a bowel movement. No known vaginal bleeding. Medications: Reviewed: Yes Vitals/I&O/Wt Last Vital Signs Temp 98.6 F 12/22/19 10:18 Pulse 98 12/22/19 10:18 Resp 16 12/22/19 10:18 BP 121/82 12/22/19 10:18 Pulse Ox 97 12/22/19 10:18 12/21/19 12/22/19 12/22/19 22:59 06:59 14:59 Intake Total 510 / 1230 100 / 1330 360 / 360 Output Total 250 / 250 200 / 450 Balance 260 / 980 -100 / 880 360 / 360 Physical Exam Const: OTHER: Alert, oriented x3, cooperative Resp: OTHER: Clear to auscultation bilaterally no rales, rhonchi or wheezes noted Cardio: OTHER: Regular rate and rhythm, no murmurs gallops or rubs. Distal pulses intact. GI: OTHER: Abdomen soft, not as tender in RLQ today, positive bowel sounds Extremity: NARRATIVE EXTREMITY EXAM: Sitting up in chair at time of examination. Able to move knees and ankles without difficulty in this position. No pitting edema in the distal extremities. No new areas of swelling. Neuro: OTHER: Speech clear, face symmetric, moves all extremities, appropriate Skin: NARRATIVE SKIN EXAM: No significant changes in bruising previously noted, none to abd/flanks Data : 12/22/19 04:25 12/19/19 00:50 Other Labs: Laboratory Tests 12/19/19 12/19/19 12/20/19 00:50 15:29 05:11 Hgb 11.3 L 9.8 L 8.5 L 12/20/19 12/21/19 12/21/19 14:20 05:05 15:30 Hgb 9.4 L 8.3 L 9.0 L Laboratory Tests 12/22/19 04:25 Hgb 7.8 L A&P Assessment and plan (1) Acute blood loss anemia: Persistent slow drop in hemoglobin again noted this morning, related to pelvic hematoma. Status: Acute (2) Pelvic hematoma: Related to fall/fracture Status: Acute (3) Fall (on) (from) other stairs and steps, initial encounter: Mechanical, no signs of proceeding signs or symptoms Status: Acute (4) Multiple closed pelvic fractures without disruption of pelvic ring: Status: Acute Qualifiers: Encounter type: initial encounter Qualified Code(s): S32.82XA - Multip le fractures of pelvis without disruption of pelvic ring, initial encounter for closed fracture (5) Hypertension: Chronically on Benicar HCT, though currently held Status: Chronic Qualifiers: Hypertension type: essential hypertension Qualified Code(s): I10 - Essential (primary) hypertension (6) Dyslipidemia: Chronically on krill oil Status: Chronic Additional A&P Information Chronic benzodiazepine use at bedtime Continue PT and OT CT abd/pelvis without contrast today Continue serial HH, drops are more than would be expected for iatrogenic reasons Check PT and PTT Add iron replacement Continue to hold Benicar HCT On home statin Keep alprazolam as as needed rather than scheduled Has been typed and screened Will need home health as well as DME including a walker, sock aid and library clerical assistant aide. Orders are in place for all of these DVT prophylaxis: SCDS, no pharmacological prophylaxis due to hematoma Full code Cardiac diet No Méndez or lines Dispo: home with HH Attestations Medical Necessity Statement*: Requires ongoing inpatient stay and continued evaluation due to persistent drop in hemoglobin. This is secondary to extraperitoneal hematoma related to fall in which she sustained multiple pelvic fractures. Coding Level of Care Code Acute Spring Encaser for [facility] Fwd Diagnoses Acute blood loss anemia D62 Pelvic hematoma Fall (on) (from) other stairs and steps, initial encounter W10.8XXA Multiple closed pelvic fractures without disruption of pelvic ring S32.82XA Encounter type: initial encounter Hypertension I10 Hypertension type: essential hypertension Dyslipidemia E78.5
--- NOTE | 2019-12-22 11:05 | CT_ITS ---
WS: [id number] CT ABDOMEN AND PELVIS NONCONTRAST HISTORY: continued drop in hgb, extraperitoneal hemorrhage 12/17 CT TECHNIQUE: Imaging performed through the abdomen and pelvis. Coronal and sagittal reformats are submi tted. All CT scans at [facility] use at least one of these dose optimization techniques: automated exposure control; mA and/or kV adjustment per patient size (includes targeted exams where d ose is matched to clinical indication); or iterative reconstruction. DLP: 1381.97 mGy.cm COMPARISON: 12/19/2019 Lower thorax: Large amount of the stomach is intrathoracic. Similar to the prior study. There is also a small circumferential pericardial effusion. Diameter of the effusion is 10 mm. Liver: Normal, no mass or intrahepatic dilatation. Gallbladder: Gallbladder is contracted which is probably due to a nonfasting state. Pancreas: Normal. Spleen: Normal. Adrenal glands: Normal. Right kidney: Hypodensities are stable since the prior study and likely cysts. No obstruction. Left kidney: Parapelvic cysts with no obstruction. Intact with no periaortic hematoma. No retroperitoneal hemorrhage. Pelvis: Recently described extraperitoneal hemorrhage in the pelvis associated with the pelvic fractu res is slightly decreased. The soft tissue anterior to the urinary bladder is significantly decreased . There is still stranding in the fat surrounding the pelvic structures presacral soft tissue thicken ing. Urinary bladder is well distended. Mild thickening of endometrium is again identified. Endometri um measures 11 mm. LEFT ovarian cyst measures 2.6 cm. There is persistent soft tissue in the parasymphyseal region associated with the pelvic fractures. La rgest hematoma measures 3.5 x 2.4 cm. GI tract: No GI tract obstruction. No free fluid or free air. Abdominal wall: Intact. Osseous structures: Comminuted fractures involving the RIGHT superior and inferior pubic rami. No hip fractures appreciated. Sclerosis involving the LEFT parasymphysis is probably from osteitis. Again n oted is a nondisplaced fracture involving the RIGHT sacrum. CT/CT abdomen pelvis wo con [id number] IMPRESSION: 1. No retroperitoneal hemorrhage. 2. Moderate improvement in the extraperitoneal hemorrhage in the pelvis with n o progression. 3. Largest hematoma is posterior to the parasymphyseal region measuring 3.5 x 2.4 cm. 4. Comminuted nondisplaced RIGHT superior and inferior pubic rami fractures. 5. Nondisplaced RIGHT sacral alar fracture. 6. Large hiatal hernia. Majority of the stomach is intrathoracic. 7. Small circumferential pericardial effusion.
[2019-12-22 15:00] LABS: Hematocrit 28.2 % (37.0-47.0); Hemoglobin 8.8 g/dL (11.5-15.3)
[2019-12-22 15:45] VITALS: BP 109/75; PULSE 92; RESP 16; TEMP 37.2; O2SAT 97
[2019-12-22 15:46] LABS: Partial Thromboplastin Time 24.9 SECONDS (23.9-36.7)
[2019-12-22] MEDS: iron complex forte Capsule 1 EACH PO (17:40)
[2019-12-22 20:00] VITALS: BP 114/57; PULSE 102; RESP 20; TEMP 37.1; O2SAT 96
[2019-12-23] VITALS: BP 131/64; PULSE 100; RESP 20; TEMP 36.7; O2SAT 93
[2019-12-23 04:00] VITALS: BP 119/61; PULSE 92; RESP 20; TEMP 36.6; O2SAT 96
[2019-12-23 04:51] LABS: Hemoglobin 8.3 g/dL (11.5-15.3)
[2019-12-23] MEDS: acetaminophen 325 mg Tablet 650 MG PO ×2 (06:03→13:44)
[2019-12-23 07:51] VITALS: BP 130/76; PULSE 88; RESP 20; TEMP 36.7; O2SAT 96
[2019-12-23] MEDS: iron complex forte Capsule 1 EACH PO (08:16)
[2019-12-23] MEDS: sennosides-docusate Tablet 1 TAB PO (08:16)
--- NOTE | 2019-12-23 09:34 | PC.SOCIAL ---
Pg 2 IMM Explained to pt Pg 2 IMM. She verbally understands. No questions voiced. Provided pt a copy & left on pt's bedside table. Signed, dated, & timed a copy then placed in pt's chart.
--- NOTE | 2019-12-23 10:33 | P.DS_ITS ---
Discharge Providers Date of Admission: 12/20/19 08:34 Date of Discharge: December 23, 2019 Attending Provider at Admission: Pérez Villatoro MD Attending Provider at Discharge: Keri Tam MD Primary Care Provider: Marybeth Gutierrez MD Diagnoses at Discharge Discharge Diagnosis (1) Fall (on) (from) other stairs and steps, initial encounter: Status: Acute (2) Multiple closed pelvic fractures without disruption of pelvic ring: Status: Acute Qualifiers: Encounter type: initial encounter Qualified Code(s): S32.82XA - Multiple fractures of pelvis without disruption of pelvic ring, initial encounter for closed fracture (3) Pelvic hematoma: Status: Acute (4) Acute blood loss anemia: Status: Acute (5) Hypertension: Status: Chronic Qualifiers: Hypertension type: essential hypertension Qualified Code(s): I10 - Essential (primary) hypertension (6) Dyslipidemia: Status: Chronic Reason for Visit Reason for Visit: Reason For Visit: fall Hospital Course Hospital Course: Mrs. Flores Yi is a very pleasant lady who presented after a fall at home. It was a mechanical fall without any preceding symptoms. She sustained superior and inferior pubic rami fractures as well as a right sacral filiberto fracture. Along with this she developed a pelvic hematoma. She had acute blood loss anemia with hemoglobin dropping down as low as 7.8 from 11.3 at presentation. She did not require transfusion of any blood but was monitored due to continued drop. Repeat CT of the abdomen and pelvis on December 21 did not show any extension and actually demonstrated some improvement of the areas of hematoma development. For details please see report. Patient did very well with therapy. Pain was actually able to be controlled mostly with Tylenol and occasionally with tramadol. She will be weightbearing as tolerated. A rrangements are being made for home health care. She lives alone but has a family member that will stay with her. I told her that she cannot drive for the time being until cleared by either orthopedics or PCP. She is to use her walker at all times except under the guidance of therapy. Stool softeners were added. I changed her alprazolam to as needed at bedtime rather than scheduled. Antihypertensives were initially held but blood pressures have started to increase and I think we can safely resume them starting tomorrow the day after discharge. Patient is understandably a little anxious but ready for discharge home. No further issues were noted during the hospital stay. Physical Exam Const: OTHER: Alert, oriented x3, cooperative Resp: OTHER: Clear to auscultation bilaterally no rales, rhonchi or wheezes noted Cardio: OTHER: Regular rate and rhythm, no murmurs gallops or rubs. Distal pulses intact. GI: OTHER: Abdomen soft, not as tender in RLQ today, positive bowel sounds Extremity: NARRATIVE EXTREMITY EXAM: Sitting up in chair at time of examination. Able to move knees and ankles without difficulty in this position. No pitting edema in the distal extremities. No new areas of swelling. Neuro: OTHER: Speech clear, face symmetric, moves all extremities, appropriate Skin: NARRATIVE SKIN EXAM: No significant changes in bruising previously noted, none to abd/flanks Discharge Data Data Completed and Pending: Completed Studies During Hospitalization Category Date Time Status CT abdomen pelvis w con* [id number] Urge nt Cat Scan 12/19/19 00:[address] abdomen pelvis wo con [id number] Rout ine Cat Scan 12/22/19 11:05 Completed XR hip RT 2-3V wo /w pel* [id number] Stat Exams 12/18/19 22:07 Completed Labs from last 24 hours 12/23/19 12/22/19 12/22/19 04:20 14:35 14:35 Hgb 8.3 L 8.8 L Hct 26.0 L 28.2 L PT 13.50 H INR 1.00 APTT 24.9 Laboratory Tests 12/19/19 12/22/19 00:50 14:35 PT 13.50 H INR 1.00 APTT 24.9 Sodium 142 Potassium 4.2 Chloride 106 Carbon Dioxide 24 Anion Gap 16.2 BUN 15 Creatinine 0.6 Glucose 160 H Calcium 8.8 Total Bilirubin 1.2 AST 21 ALT 14 Alkaline Phosphata se 65 Albumin 3.9 12/19/19 12/19/19 12/20/19 00:50 15:29 05:11 Hgb 11.3 L 9.8 L 8.5 L 12/20/19 12/21/19 12/21/19 14:20 05:05 15:30 Hgb 9.4 L 8.3 L 9.0 L 12/22/19 12/22/19 12/23/19 04:25 14:35 04:20 Hgb 7.8 L 8.8 L 8.3 L Imaging^: Xray Ortho: Radiologist's impression: 12/18/2019 XR hip RT 2-3V wo/w pel* [id number] REASON FOR EXAM: fall FINDINGS: Degenerate changes of the right hip joint. No fractures of the hip are seen. No fractures of the visible right pelvis. There is marked osteopenic changes seen with the inferior ramus poorly identified. XR/XR hip RT 2-3V wo/w pel* [id number] IMPRESSION: No fractures of the right hip. CT Abd/Pel: Radiologist's impression: 12/22/2019 CT ABDOMEN AND PELVIS NONCONTRAST HISTORY: continued drop in hgb, extraperitoneal hemorrhage 12/17 CT TECHNIQUE: Imaging performed through the abdomen and pelvis. Coronal and sagittal reformats are submitted. All CT scans at [facility] use at least one of these dose optimization techniques: automated exposure control; mA and/or kV adjustment per patient size (includes targeted exams where dose is matched to clinical indication); or iterative reconstruction. DLP: 1381.97 mGy.cm COMPARISON: 12/19/2019 Lower thorax: Large amount of the stomach is intrathoracic. Similar to the prior study. There is also a small circumferential pericardial effusion. Diameter of the effusion is 10 mm. Liver: Normal, no mass or intrahepatic dilatation. Gallbladder: Gallbladder is contracted which is probably due to a nonfasting st ate. Pancreas: Normal. Spleen: Normal. Adrenal glands: Normal. Right kidney: Hypodensities are stable since the prior study and likely cysts. No obstruction. Left kidney: Parapelvic cysts with no obstruction. Intact with no periaortic hematoma. No retroperitoneal hemorrhage. Pelvis: Recently described extraperitoneal hemorrhage in the pelvis associated with the pelvic fractures is slightly decreased. The soft tissue anterior to the urinary bladder is significantly decreased. There is still stranding in the fat surrounding the pelvic structures presacral soft tissue thickening. Urinary bladder is well distended. Mild thickening of endometrium is again identified. Endometrium measures 11 mm. LEFT ovarian cyst measures 2.6 cm. There is persistent soft tissue in the parasymphyseal region associated with the pelvic fractures. Largest hematoma measures 3.5 x 2.4 cm. GI tract: No GI tract obstruction. No free fluid or free air. Abdominal wall: Intact. Osseous structures: Comminuted fractures involving the RIGHT superior and inferior pubic rami. No hip fractures appreciated. Sclerosis involving the LEFT parasymphysis is probably from osteitis. Again noted is a nondisplaced fracture involving the RIGHT sacrum. CT/CT abdomen pelvis wo con [id number] IMPRESSION: 1. No retroperitoneal hemorrhage. 2. Moderate improvement in the extraperitoneal hemorrhage in the pelvis with no progression. 3. Largest hematoma is posterior to the parasymphyseal region measuring 3.5 x 2.4 cm. 4. Comminuted nondisplaced RIGHT superior and inferior pubic rami fractures. 5. Nondisplaced RIGHT sacral alar fracture. 6. Large hiatal hernia. Majority of the stomach is intrathoracic. 7. Small circumferential pericardial effusion. Other CT: Radiologist's impression: CT abd/pelvis 12/19/2019 FINDINGS: Heart: Slight cardiac prominence. Small pericardial effusion. Lungs: Calcified granuloma in the right lower lobe. Minimal stranding in the lung bases. Liver: No enhancing liver mass. Gallbladder and bile ducts: No calcified stones. No ductal dilation. Pancreas: Unremarkable pancreas. Spleen: No splenomegaly. Adrenals: No adrenal mass. Kidneys and ureters: High probability of multiple peripelvic cysts in the left renal sinus. Homogeneous water density in the 18 mm intracortical mass in the right kidney and similar low density in multiple smaller intracortical masses in the kidneys. No proximal ureteral dilatation or right hydronephrosis. Stomach and bowel: Positioning of essentially all of the stomach in the lower chest without distension. No small bowel obstruction. Slight air-fluid levels in the right colon, significance unclear. Possible developing rectal impaction. Appendix: Normal appendix. Intraperitoneal space: No free air. No significant free fluid in the peritoneal cavity. Vasculature: No aortic aneurysm or dissection. Lymph nodes: No enlarged nodes. Bladder: No obvious abnormality of the small bladder. Reproductive: Prominent decreased density measuring 25 HU within the upper endometrial cavity having a depth of 17 mm. Homogeneous water density in the 3 cm left ovarian cyst. Bones/joints: Comminuted acute fractures of the right superior and inferior pubic rami. Acute fracture line in the right sacral wing, also. No obvious transverse fracture line in the sacrum. No fractures in the acetabuli and proximal femurs. Old compression fractures. Partial bony bridging of a lower thoracic disc. Slight degeneration of other discs. Slight spondylolisthesis at L4-L5 and L5-S1. Minimal retrolisthesis at L1-L2. Soft tissues: Slight soft tissue density consistent with bruising in the subcutaneous fat in the lateral right hip region. Enlargement of the muscles in the medial right hip region, but no large hematoma in this area. Extensive extraperitoneal hematoma posterior to the lower anterior abdominal wall and anterior to the bladder along with hemorrhagic stranding in the extraperitoneal fat bilaterally along both sides of the bladder extending inferiorly along the right pelvic sidewall and posterior to the symphysis pubis. CT/CT abdomen pelvis w con* [id number] IMPRESSION: 1. Comminuted acute fractures of the right superior and inferior pubic rami associated with extensive extraperitoneal hemorrhage in the pelvis as detailed above. Acute right sacral fracture also present. 2. Positioning of essentially all of the stomach in the lower chest without strangulation. 3. Small pericardial effusion. Slight cardiac prominence. 4. Enlargement of the endometrial cavity for the patient's age containing a density of 25 HU, significance unclear. Follow-up non-emergent transvaginal pelvic sonography suggested for consideration. Left ovarian mass consistent with a simple cyst also evident. 5. Renal masses consistent with simple cysts. Other findings detailed above. Vitals: Last Vital Signs Temp 98.1 F 12/23/19 07:51 Pulse 88 12/23/19 07:51 Resp 20 H 12/23/19 07:51 BP 130/76 12/23/19 07:51 Pulse Ox 96 12/23/19 07:51 Discharge Plan Discharge Patient Disposition: Home Health Service Condition: Stable Prescriptions: New acetaminophen 325 mg Tablet 650 mg PO Q4H PRN (Reason: mild pain) Qty: 0 RF: 0 Ferrex 150 Forte 150-25-1 mg-mcg-mg Capsule 1 cap PO BIDWM Qty: 60 RF: 0 sennosides-docusate sodium 8.6-50 mg Tablet 1 tab PO BID Qty: 60 RF: 0 tramadol 50 mg Tablet 50 mg PO Q4H PRN (Reason: Moderate Pain) Qty: 30 RF: 0 Continued CoQ-10 100 mg Capsule 100 mg PO DAILY RF: 0 Benicar HCT 20-12.5 mg Tablet 1 tab PO QPM RF: 0 MegaRed [place]-3 Krill Oil 072-59-73-50 mg Capsule 1 cap PO DAILY RF: 0 Changed alprazolam 0.25 mg Tablet 0.25 mg PO QPM PRN (Reason: at bedtime) Qty: 0 RF: 0 Discharge Orders: Discharge Order (Routine); Ordered 12/23/19 Ordered By: Keri Tam Other Ambulatory Orders: Hemoglobin and Hematocrit (Routine) Timeframe: 1 Week Location: Determined by Patient Ordered By: Keri Tam DME: Miscellaneous (Order) Location: None Selected Ordered By: Keri Tam DME: Walker (Order) Location: None Selected Ordered By: Keri Tam Referrals: Marybeth Gutierrez MD [Primary Care Provider] - 2 weeks Ronald Jeffrey MD [Physician] - 2 weeks Discharge Diet: Cardiac Discharge Activity: Use walker/crutches as instructed Patient Instructions: Acetaminophen (By mouth), Alprazolam (By mouth), Laxative, Stimulant (By mouth), Tramadol (By mouth), Vitamin B with Iron (By mouth), Pelvic Fracture (DC), Fall Prevention for Older Adults (GEN), Anemia (DC) Activity Restrictions/Additional Instructions: Follow instructions provided by PT and OT. Use walker at all times. Discharge Attestations Time Spent in Discharge Care*: greater than 30 min Quality Metrics Clinical Quality Measures During this hospital stay, did patient experience: None Coding Level of Care Code Acute Curbstone Setter for Chg Fwd Diagnoses Fall (on) (from) other stairs and steps, initial encounter W10.8XXA Multiple closed pelvic fractures without disruption of pelvic ring S32.82XA Encounter type: initial encounter Pelvic hematoma Acute blood loss anemia D62 Hypertension I10 Hypertension type: essential hypertension Dyslipidemia E78.5
[2019-12-23 10:55] VITALS: BP 130/76; PULSE 88; RESP 20; TEMP 36.7; O2SAT 96
[2019-12-23 11:42] VITALS: BP 124/86; PULSE 89; RESP 18; TEMP 36.7; O2SAT 97
== END 2019-12-23 14:26 | disposition home health service (06) | DRG 812 ==
LOC: ER 12-19 04:21 → MEDSURG 12-19 06:43
PROVIDERS: Emergency Medicine; Student in an Organized Health Care Education/Training Program; Admitting Provider Internal Medicine; PCP Family Medicine; Visit Provider Hospitalist
DX: D62 Acute posthemorrhagic anemia (principal); S32.82XA Multiple fractures of pelvis without disruption of pelvic ring, initial encounter for closed fracture; I31.3 Pericardial effusion (noninflammatory); W19.XXXA Unspecified fall, initial encounter; I10 Essential (primary) hypertension; S30.0XXA Contusion of lower back and pelvis, initial encounter; I08.0 Rheumatic disorders of both mitral and aortic valves; E78.5 Hyperlipidemia, unspecified; K44.9 Diaphragmatic hernia without obstruction or gangrene
CPT/HCPCS: 12345; 36415; 73502; 74176; 74177; 80053; 81003; 84484; 85007; 85014; 85018; 85025; 85027; 85610; 85730; 86850; 86900; 93005; 96375; 97110; 97161; 97166; 97530; 97535; 99283; G0378; J2270; J2405; J7030; Q9967

== ENCOUNTER 2021-10-23 13:18 | Outpatient (CLI) | payer MEDICARE, SELFPAY ==
--- NOTE | 2021-10-23 13:27 | MM_ITS ---
WS: [id number] BILATERAL 3D TOMOSYNTHESIS DIGITAL SCREENING MAMMOGRAPHY WITH CAD CLINICAL INFORMATION: SCREENING HISTORY: Screening mammogram. No current complaints. COMPARISON: TECHNIQUE: Bilateral CC and MLO views. FINDINGS: Scattered fibroglandular densities bilaterally. 7 mm asymmetry density inner RIGHT breast is stable c ompared to 2017. Stable incidental punctate calcifications LEFT breast. Incidental stable intramammar y lymph nodes LEFT breast. No suspicious focal mass, asymmetry, calcifications, or architectural dist ortion. No evidence of malignancy. MM/[place] [id number] IMPRESSION: BI-RADS: 2-Benign FOLLOW UP: 1 Year Follow-up Recommend return to annual screening mammography.
== END 2021-10-23 13:19 | disposition home or self-care (01) ==
PROVIDERS: PCP Family Medicine; Visit Provider Family Medicine
DX: Z12.31 Encounter for screening mammogram for malignant neoplasm of breast (principal)
CPT/HCPCS: 77063; 77067

== ENCOUNTER 2024-06-28 12:50 | Inpatient (IN) | payer MEDICARE, SELFPAY ==
[2024-06-28] VITALS (18 sets, daily range): BP systolic 85–156; BP diastolic 50–99; PULSE 79–99; RESP 13–18; TEMP 36.2–36.5; O2SAT 93–99
--- NOTE | 2024-06-28 12:55 | XR_ITS ---
WS: [id number] Exam: XR hip LT 2-3V wo/w pel* [id number] Date/Time of Exam: 06/28/2024 1:08 PM Reason For Exam: pain There is an intertrochanteric fracture of the LEFT hip with mild coxa vera deformity. There is avulsi on medial separation of the lesser trochanter. Mild DJD of the joint compartment. Soft tissues are un remarkable. XR/XR hip LT 2-3V wo/w pel* [id number] IMPRESSION: 1. Intertrochanteric fracture of the LEFT hip with mild coxa vera deformity and separation at the fracture site.
--- NOTE | 2024-06-28 13:03 | W.ED.LOWEXIN ---
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 No other injuries she is not on any anticoagulants. She is still unable to move at the left hip she attempted to get up at the scene but is unable to due to due to pain. Related Data Home Medications Medication Instructions Recorded Confirmed coenzyme Q10 100 mg capsule 100 mg PO DAILY 12/19/19 06/28/24 (CoQ-10) olmesartan 20 1 tab PO QPM 12/19/19 06/28/24 mg-hydrochlorothiazide 12.5 mg tablet (Benicar HCT) alprazolam 0.5 mg tablet 0.25 mg PO TID PRN Anxiety 06/28/24 06/28/24 cranberry 500 mg capsule 500 mg PO DAILY 06/28/24 06/28/24 ibuprofen 200 mg tablet 200 mg PO Q6H PRN Pain 06/28/24 06/28/24 krill 1,000 mg-omega-3 230 mg-dha 1 cap PO DAILY 06/28/24 06/28/24 60 zn-qcq-ntohmvnmt-astaxan capsule (MegaRed [place]-3 Krill Oil) Previous Rx's Medication Instructions Recorded acetaminophen 325 mg tablet 650 mg (2 x 325 mg) PO Q4H PRN 12/23/19 mild pain #0 tabs Allergies Allergy/AdvReac Type Severity Reaction Status Date / Time No Known Allergies Allergy Verified 12/18/19 21:59 Review of Systems Const: Denies: fever(s) or chills Card: Denies: chest pain Resp: Denies: dyspnea GI: Denies: abdominal pain : Denies: dysuria, urinary frequency or urinary urgency Musc: Denies: neck pain or back pain Skin/Breast: Denies: rash PFSH ED PFSH: Medical History Hypertension Dyslipidemia Mitral valve regurgitation Aortic regurgitation Surgical History History of arthroplasty of right ankle due to fracture Family History Other CAD (coronary artery disease) Hypertension Social History Smoking and tobacco/nicotine status: never used tobacco/nicotine Alcohol intake: never Substance/Drug Use: never Lives independently: Yes Housing: House Physical Exam Const: GENERAL APPEARANCE: cooperative ORIENTATION/CONSCIOUSNESS: Yes awake, Yes oriented to person, Yes oriented to place and Yes oriented to time HENMT: COMMON NORMALS: normocephalic, atraumatic and hearing grossly normal bilaterally HEAD & SCALP: normocephalic and atraumatic Resp: COMMON NORMALS: normal respiratory effort, No retractions, No use of accessory muscles and clear to auscultation bilaterally AUSCULTATION: clear to auscultation bilaterally Cardio: COMMON NORMALS: regular rate, regular rhythm and No murmurs present (Cardio) RATE: regular rate RHYTHM: regular rhythm GI: COMMON NORMALS: Soft to palpation and No hepatosplenomegaly present AUSCULTATION: Yes normoactive bowel sounds PALPATION: Yes Soft to palpation, No Tenderness to palpation present (GI), No Guarding due to palpation present (GI) and Yes No hepatosplenomegaly present Extremity: COMMON NORMALS: normal to inspection, capillary refill normal, no clubbing, cyanosis or edema, no calf tenderness and no pedal edema OTHER: Comminuted intertrochanteric left hip fracture on x-ray unable to move left lower extremity. Sensation normal vascular normal. Neuro: SENSORIUM/ORIENTATION: Yes oriented to person, Yes oriented to place and Yes oriented to time Skin: COMMON NORMALS: no rashes or lesions noted GENERAL SKIN EXAM: no rashes or lesions noted Course Vital Signs: Vital signs: Vital Signs Temperature 97.7 F 06/28/24 12:54 Pulse Rate 93 06/28/24 14:27 Respiratory Rate 18 06/28/24 14:13 Blood Pressure 156/98 06/28/24 14:27 Pulse Oximetry 98 06/28/24 14:27 Oxygen Delivery Me thod Room Air 06/28/24 14:27 MDM - Extremity Injury (Lower) Medical Decision Making Left comminuted intra-articular trochanteric hip fracture. Will admit patient discussed with hospitalist orders written also [facility] hold the patient n.p.o. Dr. Cisse may attempt to do surgery later today yet since patient last ate at 8:00 this morning. Discussed with hospitalist orders written Medical Records I reviewed the patient's medical records. Lab Data I reviewed the patient's lab results. Radiology Impressions Hip/Pelvis X-Ray 06/28/24 12:55 IMPRESSION: 1. Intertrochanteric fracture of the LEFT hip with mild coxa vera deformity and separation at the fracture site. Chest X-Ray 06/28/24 13:17 IMPRESSION: 1. No acute cardiopulmonary finding. All radiology interpretation(s) finalized by discharge Discharge Plan Discharge Patient Disposition: Admitted As Inpatient Clinical Impression: Closed fracture of left hip Condition: Stable Prescriptions: No Action coenzyme Q10 [CoQ-10] 100 mg Capsule 100 mg PO DAILY olmesartan-hydrochlorothiazide [Benicar HCT] 20-12.5 mg Tablet 1 tab PO QPM acetaminophen 325 mg Tablet 650 mg PO Q4H PRN (Reason: mild pain) Qty: 0 0RF alprazolam 0.5 mg tablet 0.25 mg PO TID MDD must last 30 days PRN (Reason: Anxiety) [id number]-[id number]-ast [MegaRed [place]-3 Krill Oil] 1,000-230-60 mg Capsule 1 cap PO DAILY ibuprofen 200 mg Tablet 200 mg PO Q6H PRN (Reason: Pain) cranberry 500 mg Capsule 500 mg PO DAILY Rx Instructions: administer with meals Referrals: Marybeth Gutierrez MD [Primary Care Provider] - Patient Instructions: Opioid Safety, Pain Management Coding Level of Care Code ED Rubber Heel And Sole Press Tender for Nancy Orozco
--- NOTE | 2024-06-28 13:17 | XR_ITS ---
WS: [email or web address] Exam: XR chest 1V portable [id number] Date/Time of Exam: 06/28/2024 1:17 PM Reason For Exam: dyspnea/cough No prior studies. The lungs are clear and fully inflated. No pleural effusions. Heart size is normal. The mediastinum i s not widened. There may be a prominent left-sided pericardial fat pad present. Bony structures are i ntact. Marked DJD of both shoulders. XR/XR chest 1V portable [id number] IMPRESSION: 1. No acute cardiopulmonary finding.
--- NOTE | 2024-06-28 13:50 | P.HP_ITS ---
Providers/Chief Complaint 2 Primary Care Provider: Marybeth Gutierrez MD Chief Complaint: left hip pain rotation History of Present Illness Collette Lemos is a 84 year old female with past medical history of hypertension. He presented to the hospital after having a mechanical fall secondary to getting hit by the bed. She states she got caught in the walkway of the automatic door and fell down off of the door smashed into her. Nausea and diarrhea constipation shortness of breath chest pain at this time. Otherwise healthy. Does not take any other medications besides benicar. Medications/Allergies Home Medications Medication Instructions Recorded Confirmed Last Taken Type coenzyme Q10 100 mg capsule 100 mg PO DAILY 12/19/19 06/28/24 06/28/24 History (CoQ-10) olmesartan 20 1 tab PO .QNOON 12/19/19 06/28/24 06/27/24 History mg-hydrochlorothiazide 12.5 mg tablet (Benicar HCT) acetaminophen 325 mg tablet 650 mg (2 x 325 mg) PO Q4H PRN 12/23/19 06/28/24 Unknown Rx mild pain #0 tabs alprazolam 0.5 mg tablet 0.25 mg PO TID PRN Anxiety 06/28/24 06/28/24 Unknown History calcium carbonate 600 mg PO DAILY 06/28/24 06/28/24 06/28/24 History cholecalciferol (vitamin D3) 50 50 mcg PO DAILY 06/28/24 06/28/24 06/28/24 History mcg (2,000 unit) tablet (Vitamin D3) cranberry 500 mg capsule 500 mg PO DAILY 06/28/24 06/28/24 06/28/24 History ibuprofen 200 mg tablet 200 mg PO Q6H PRN Pain 06/28/24 06/28/24 Unknown History krill 1,000 mg-omega-3 230 mg-dha 1 cap PO DAILY 06/28/24 06/28/24 06/28/24 History 60 lb-ktj-naixoatsv-astaxan capsule (MegaRed [place]-3 Krill Oil) magnesium 250 mg tablet See Rx Instructions .Route .COMPLEX 06/28/24 06/28/24 06/28/24 History Allergies Allergy/AdvReac Type Severity Reaction Status Date / Time No Known Allergies Allergy Verified 12/18/19 21:59 PFSH Acute 2 PFSH: Medical History Hypertension Dyslipidemia Mitral valve regurgitation Aortic regurgitation Surgical History History of arthroplasty of right ankle due to fracture Family History Other CAD (coronary artery disease) Hypertension Social History Smoking and tobacco/nicotine status: never used tobacco/nicotine Alcohol intake: never Substance/Drug Use: never Lives independently: Yes Housing: House Vitals/I&O/Wt Last Vital Signs Temp 97.7 F 06/28/24 12:54 Pulse 91 06/28/24 12:54 Resp 18 06/28/24 12:54 BP 136/99 06/28/24 12:54 Pulse Ox 97 06/28/24 12:54 O2 Del Method Room Air 06/28/24 12:54 Physical Exam 2 Narrative: General: Alert oriented x3, patient seen sitting up in bed appearing comfortable at this time. Wearing compression stockings. Vitals are stable. Liver normal. HEENT: Normocephalic, atraumatic, EOMI, breathing normally. Cardio: Regular rate rhythm, normal S1-S2 no gross murmurs. Respiratory: Good bilateral air entry, no wheezes no rhonchi appreciated GI: Abdomen soft, nontender, nondistended, bowel sounds + Behavior: Appropriate and cooperative Extremities: Compression stockings in place, no edema noted bilateral lower extremities. Patient still wearing jeans. Data 06/28/24 14:31 06/28/24 14:31 A&P Assessment and plan (1) Hypertension: Qualifiers: Hypertension type: essential hypertension Qualified Code(s): I10 - Essential (primary) hypertension (2) Dyslipidemia: (3) Multiple closed pelvic fractures without disruption of pelvic ring: Qualifiers: Encounter type: initial encounter Qualified Code(s): S32.82XA - Multiple fractures of pelvis without disruption of pelvic ring, initial encounter for closed fracture (4) Closed fracture of left hip: Plan #Left hip fracture #Hypertension #Anxiety ? Continue as needed Xanax ? Consult orthopedic surgery. Plan to go to the OR later this afternoon with Dr. Cisse ? Check preop x-ray, EKG, preop labs CBC CMP magnesium, INR ? All labs and imaging studies ordered in the ER however results are pending at this time ? Placed on IV fluids normal saline 75 cc/h ? Continue antihypertensives as per home dose at this time. ? Morphine 2 mg every 4 hours as needed. ? PT consult will be discontinued. -Patient denies any chest pain shortness of breath at this time. She is not on insulin at home. ? Awaiting preop labs at this time -Patient did have a pelvic hematoma previously with her pelvic fracture and had acute blood loss anemia. Full code Due to prophylaxis: Heparin SQ twice daily, Attestations 2 Medical Necessity Statement*: L> 2 midnight stay for mgmt of hip fracture Coding Level of Care Code Acute Code for Chg Fwd Diagnoses Essential hypertension I10 Hypertension type: essential hypertension Dyslipidemia E78.5 Multiple closed fractures of pelvis without disruption of pelvic ring, initial encounter S32.82XA Encounter type: initial encounter Closed fracture of left hip S72.002A
--- NOTE | 2024-06-28 14:00 | PC.PHAR ---
Pt was curious about Medical Destinations program through [facility]. Pt might qualify and would be interested in PCP helping with a referral to Dr Mitul Hurley in that hospital. This is for AFTER hip is taken care of.
[2024-06-28] MEDS: ondansetron 2 mg/ML SDV 2 mL 4 MG IVP (14:10)
[2024-06-28] MEDS: morphine 4 mg/mL SDV 1 mL IVP ×2 (14:13→15:16)
[2024-06-28] MEDS: sodium chloride 0.9% 1,000 ML 75 ML IV (14:16)
--- NOTE | 2024-06-28 14:20 | PC.NURSE ---
PER VERBAL ORDER FROM DR. DELAROSA, HOLD HEPARIN UNTIL AFTER SURGERY.
[2024-06-28 14:43] LABS: Basophils % 0.3 %; Eosinophils % 0.3 %; Hematocrit 37.1 % (36-47); Lymphocytes % 14.9 %; Mean Corpuscular HGB Conc 32.9 g/dL (30-55); Mean Corpuscular Hemoglobin 29.5 pg (27-33); Mean Corpuscular Volume 89.6 fl (85-98); Mean Platelet Volume 10.2 fL (7.4-10.4); Monocytes # 0.3 10^3/uL (0.2-0.9); Monocytes % 4.9 %; Neutrophils # 5.12 10^3/uL (1.8-7.7); Nucleated Red Blood Cells % 0 %; Platelet Count 173 10^3/cmm (157-399); Red Blood Count 4.14 10^6/uL (3.85-5.65); White Blood Count 6.49 10^3/uL (3.29-11.43)
[2024-06-28 14:56] LABS: INR 1.06 (0.8-1.2)
--- NOTE | 2024-06-28 15:08 | PC.NURSE ---
PER VERBAL ORDER FROM DR. LEHMAN, ORDER AND ADMIN MORPHINE 4MG IVP ONCE.
[2024-06-28 15:14] LABS: Alanine Aminotransferase 11 U/L (0-33); Albumin Level 3.5 g/dL (3.5-5.2); Alkaline Phosphatase 68 U/L (35-105); Anion Gap 11.6 (5-19); Aspartate Amino Transferase 16 U/L (0-32); Blood Urea Nitrogen 18 mg/dL (8-23); Calcium 8.4 mg/dL (8.5-10.5); Carbon Dioxide 26 mmol/L (22-29); Chloride 103 mmol/L (98-107); Creatinine Clr Calc Pharmacy 46.8393; Globulin 2.3 g/dL (1.3-4.6); Glucose 107 mg/dL (65-115); Osmolality Calculated 286 mOsm/kg (285-295); Potassium 3.6 mmol/L (3.5-5.1); Sodium 137 mmol/L (136-145); Thyroid Stimulating Hormone 2.48 uIU/mL (0.27-4.20); Total Bilirubin 1.2 mg/dL (0.15-1.2); Total Protein 5.8 g/dL (6.6-8.7)
--- NOTE | 2024-06-28 16:11 | ANES.PREANE2 ---
Pre-Anesthetic Assessment Height/Weight: Height 1.55 m Weight 72.575 kg Temp Pulse Resp BP Pulse Ox O2 Del Method 97.7 F 94 18 131/73 95 Room Air 06/28/24 16:06 06/28/24 16:06 06/28/24 16:06 06/28/24 16:06 06/28/24 16:06 06/28/24 15:57 Operation Date: 06/28/24 18:05 Proposed Procedures p Trochanteric Femoral Nail(Left) - Chester Harris Caron, DO Familial anesthetic complications: None Was Beta Madalyn taken within 24 hours: N/A Was Clonidine taken within 24 hours: N/A Last intake: toast and 2 little sausages at 0800 Social No alcohol and No tobacco Exam alert, oriented x 3, clear to auscultation bilaterally and regular rate & rhythm Airway Mallampati: Class II Dentition: partials CV/HEM Hypertension Anesthetic Plan ASA status: 2 Anesthesia: General Risk of > 500 ml blood loss (7ml/kg in children): No Medications/Allergies Home Medications Medication Instructions Recorded Confirmed Last Taken Type coenzyme Q10 100 mg capsule 100 mg PO DAILY 12/19/19 06/28/24 06/28/24 History (CoQ-10) olmesartan 20 1 tab PO .QNOON 12/19/19 06/28/24 06/27/24 History mg-hydrochlorothiazide 12.5 mg tablet (Benicar HCT) acetaminophen 325 mg tablet 650 mg (2 x 325 mg) PO Q4H PRN 12/23/19 06/28/24 Unknown Rx mild pain #0 tabs alprazolam 0.5 mg tablet 0.25 mg PO TID PRN Anxiety 06/28/24 06/28/24 Unknown History calcium carbonate 600 mg PO DAILY 06/28/24 06/28/24 06/28/24 History cholecalciferol (vitamin D3) 50 50 mcg PO DAILY 06/28/24 06/28/24 06/28/24 History mcg (2,000 unit) tablet (Vitamin D3) cranberry 500 mg capsule 500 mg PO DAILY 06/28/24 06/28/24 06/28/24 History ibuprofen 200 mg tablet 200 mg PO Q6H PRN Pain 06/28/24 06/28/24 Unknown History krill 1,000 mg-omega-3 230 mg-dha 1 cap PO DAILY 06/28/24 06/28/24 06/28/24 History 60 oc-uyu-wlcnmrpcm-astaxan capsule (MegaRed [place]-3 Krill Oil) magnesium 250 mg tablet See Rx Instructions .Route .COMPLEX 06/28/24 06/28/24 06/28/24 History Allergies Allergy/AdvReac Type Severity Reaction Status Date / Time No Known Allergies Allergy Verified 12/18/19 21:59 Current Medications Generic Name Dose Route Start Last Admin Trade Name Rosita PRN Reason Stop Dose Admin Heparin Sodium (Porcine) 5,000 unit 06/28/24 14:00 06/28/24 14:20 Heparin 5,000 Unit/Ml Inj 1 Ml SUBCUT Not Given Q12H RADHA Sodium Chloride 1,000 mls @ 75 mls/hr 06/28/24 14:00 06/28/24 14:16 Sodium Chloride 0.9% IV 75 mls/hr .[id number] RADHA Administration PFSH Anesthesia Medical History Hypertension Dyslipidemia Mitral valve regurgitation Aortic regurgitation Surgical History History of arthroplasty of right ankle due to fracture Family History Other CAD (coronary artery disease) Hypertension Social History Smoking and tobacco/nicotine status: never used tobacco/nicotine Alcohol intake: never Substance/Drug Use: never Lives independently: Yes Housing: House Data Anesthesia 06/28/24 14:31 06/28/24 14:31 Short CBC 06/28/24 Range/Units 14:31 WBC 6.49 (3.29-11.43) 10^3/uL Hgb 12.20 (11.27-16.99) g/dL Hct 37.1 (36-47) % MCV 89.6 (85-98) fl Plt Count 173 (157-399) 10^3/cmm Neut % (Auto) 79.0 % Neut # (Auto) 5.12 (1.8-7.7) 10^3/uL BMP 06/28/24 14:31 Sodium 137 Potassium 3.6 Chloride 103 Carbon Dioxide 26 BUN 18 Creatinine 0.5 Glucose 107 Calcium 8.4 L Liver Function 06/28/24 Range/Units 14:31 Total Bilirubin 1.2 (0.15-1.2) mg/dL AST 16 (0-32) U/L ALT 11 (0-33) U/L Alkaline Phosphatase 68 (35-105) U/L Albumin 3.5 (3.5-5.2) g/dL Coags 06/28/24 14:31 PT 14.20 INR 1.06 Cardiac Studies: No Data to Display
--- NOTE | 2024-06-28 16:21 | PM.CONSULT ---
Providers/Reason For Consult Consulting Physician/Specialty*: Hospitalist Reason for Consult*: Left hip pain Attending Physician: Rae Gipson MD Primary Care Provider: Marybeth Gutierrez MD History of Present Illness History of Present Illness Collette Lemos is a 84 year old female who was walking out of [facility] in [place] and was hit by the closing door. Patient fell to the ground and sustained a left hip fracture. She is complaining of left hip pain. She is not complaining of pain anywhere else at this time. Review of Systems Const: Denies: fever(s) or chills Card: Denies: chest pain Resp: Denies: dyspnea GI: Denies: abdominal pain : Denies: dysuria, urinary frequency or urinary urgency Musc: Denies: neck pain or back pain Skin/Breast: Denies: rash Medications/Allergies Home Medications Medication Instructions Recorded Confirmed Last Taken Type coenzyme Q10 100 mg capsule 100 mg PO DAILY 12/19/19 06/28/24 06/28/24 History (CoQ-10) olmesartan 20 1 tab PO .QNOON 12/19/19 06/28/24 06/27/24 History mg-hydrochlorothiazide 12.5 mg tablet (Benicar HCT) acetaminophen 325 mg tablet 650 mg (2 x 325 mg) PO Q4H PRN 12/23/19 06/28/24 Unknown Rx mild pain #0 tabs alprazolam 0.5 mg tablet 0.25 mg PO TID PRN Anxiety 06/28/24 06/28/24 Unknown History calcium carbonate 600 mg PO DAILY 06/28/24 06/28/24 06/28/24 History cholecalciferol (vitamin D3) 50 50 mcg PO DAILY 06/28/24 06/28/24 06/28/24 History mcg (2,000 unit) tablet (Vitamin D3) cranberry 500 mg capsule 500 mg PO DAILY 06/28/24 06/28/24 06/28/24 History ibuprofen 200 mg tablet 200 mg PO Q6H PRN Pain 06/28/24 06/28/24 Unknown History krill 1,000 mg-omega-3 230 mg-dha 1 cap PO DAILY 06/28/24 06/28/24 06/28/24 History 60 xn-wpz-njumygggi-astaxan capsule (MegaRed [place]-3 Krill Oil) magnesium 250 mg tablet See Rx Instructions .Route .COMPLEX 06/28/24 06/28/24 06/28/24 History Allergies Allergy/AdvReac Type Severity Reaction Status Date / Time No Known Allergies Allergy Verified 12/18/19 21:59 Current Medications Generic Name Dose Route Start Last Admin Trade Name Rosita PRN Reason Stop Dose Admin Heparin Sodium (Porcine) 5,000 unit 06/28/24 14:00 06/28/24 14:20 Heparin 5,000 Unit/Ml Inj 1 Ml SUBCUT Not Given Q12H RADHA Sodium Chloride 1,000 mls @ 75 mls/hr 06/28/24 14:00 06/28/24 14:16 Sodium Chloride 0.9% IV 75 mls/hr .[id number] RADHA Administration PFSH Acute PFSH: Medical History Hypertension Dyslipidemia Mitral valve regurgitation Aortic regurgitation Surgical History History of arthroplasty of right ankle due to fracture Family History Other CAD (coronary artery disease) Hypertension Social History Smoking and tobacco/nicotine status: never used tobacco/nicotine Alcohol intake: never Substance/Drug Use: never Lives independently: Yes Housing: House Vitals/I&O/Wt Last Vital Signs Temp 97.7 F 06/28/24 16:06 Pulse 94 06/28/24 16:06 Resp 18 06/28/24 16:06 BP 131/73 06/28/24 16:06 Pulse Ox 95 06/28/24 16:06 O2 Del Method Room Air 06/28/24 15:57 Weight last 48 hrs Weight 160 lb Physical Exam Narrative: Left hip shortened and externally rotated. Neurovascular intact bilateral lower extremities. Patient is alert and oriented x 3 No pain to palpation any results. Data 06/28/24 14:31 06/28/24 14:31 A&P Assessment and plan (1) Closed fracture of left hip: Plan is to do a left hip nail today. I had an open and honest discussion with the patient about the risks, benefits and alternatives to both surgical and nonsurgical treatment. The patient verbalized understanding of the inherent unpredictability associated with surgery. Risk of surgery were discussed including, but not limited to, infection, bleeding, temporary and permanent nerve damage, continued pain, stiffness, incomplete healing, need for revision surgery, blood clot and other complications. The patient verbalized understanding that there is spine is elective in nature and if they find any of these risks to be unacceptable then they should choose not to have the surgery. The patient verbalized understanding of these risks and elected to proceed with the surgery. Qualifiers: Encounter type: initial encounter Qualified Code(s): S72.002A - Fracture of unspecified part of neck of left femur, initial encounter for closed fracture Coding Level of Care Code Acute Code for Chg Fwd Diagnoses Closed fracture of left hip, initial encounter S72.002A Encounter type: initial encounter
[2024-06-28] MEDS: sodium chloride 0.9% 1,000 ML 100 ML IV (16:36)
[2024-06-28] MEDS: ceFAZolin 2,000 mg SDV 2000 MG IVP (17:01)
--- NOTE | 2024-06-28 18:07 | PM.OP ---
Operative Report Date of procedure: June 28, 2024 Pre-op diagnosis: Left intertrochanteric hip fracture Post-op diagnosis: same Procedure done: Left intramedullary hip nail Surgeon: Chester Cisse DO Estimated blood loss (mL): 50 Procedure: Left intramedullary hip nail Patient was brought to the operative suite after an [place] was placed on the operative table. This was the [place] table. The feet were attached to traction. Traction was applied hip was reduced under C-arm guidance. Once the hip was reduced. Patient was prepped and draped in normal sterile fashion. Skin incision made proximal to the greater trochanter. Starting pin was inserted. Opening reamer was inserted. The hip nail was inserted. Next attention was brought to placing the lag screw. This was done by placing a guidewire. This placed in the center center position of the femoral head on AP and lateral fluoroscopy. This was measured to be 110 however I did placed 100 mm screw to get compression. The screw was placed after drilling. And then the fracture was reduced and compressed. The locking bolt was placed proximally. And then the distal locking screw was placed. AP lateral fluoroscopy ensured that the hip nail and fracture was reduced in appropriate positions. Wounds irrigated closed with Vicryl and mamie. Sterile dressings were applied and patient is transferred to the PACU in stable condition.
--- NOTE | 2024-06-28 18:17 | XR_ITS ---
WS: [id number] Exam: XR hip LT 2-3V wo/w pel* [id number] Date/Time of Exam: 06/28/2024 6:19 PM Reason For Exam: OR PICS AP and lateral intraoperative C-arm images of the LEFT hip are submitted for evaluation. Intertrochanteric fracture is now stabilized with an intramedullary fransico and femoral neck screw. Align ment appears satisfactory for healing.
[2024-06-28] MEDS: fentaNYL 50 mcg/mL INJ 2mL IVP (18:26)
--- NOTE | 2024-06-28 19:00 | ANE.PACU2 ---
Inpatient post-anesthesia follow up: Airway intact: Yes Vital signs: Temperature 97.4 F Pulse Rate 79 Respiratory Rate 18 Blood Pressure 105/59 Pulse Oximetry 95 Oxygen Delivery Me thod Room Air Oxygen Flow Rate 4 Fraction of Inspir ed Oxygen Hydration adequate: Yes Nausea and vomiting: No Pain level: 1 Mental status: Baseline
[2024-06-28] MEDS: sodium chloride 0.9% 1,000 ML 999 ML IV (21:43)
[2024-06-28 21:56] LABS: Hematocrit 27.4 % (36-47)
--- NOTE | 2024-06-28 22:48 | PC.NURSE ---
Hypotension: Pt arrived to the floor after surgery around 1900. PACU nurse in room and informed this nurse that pt's blood pressure was 85/52. This nurse expressed concern to the PACU nurse. PACU nurse stated the pt's blood pressure had been soft ever since she had gotten out of surgery. After 1 hour, pt's blood pressure did not normalize. Dr. Gtz notified and ordered a 1,000 mL bolus to be ran over 1 hour. Bolus finished and pt's blood pressure came up to 92/58. Dr. Gtz notified and stated this blood pressure was okay and to hold her fluids that were running at 75 ml/hr unless her blood pressure drops again.
[2024-06-29] VITALS (11 sets, daily range): BP systolic 85–119; BP diastolic 55–68; PULSE 85–101; RESP 14–18; TEMP 36.5–36.8; O2SAT 93–97
[2024-06-29] MEDS: heparin 5,000 unit/mL INJ 1 mL 5000 UNIT SUBCUT ×2 (01:00→17:03)
[2024-06-29] MEDS: ceFAZolin 2,000 mg SDV 2000 MG IVP ×3 (01:00→17:04)
--- NOTE | 2024-06-29 07:49 | P.PN_ITS ---
Subjective 2 Subjective: Patient laying in bed patient states she has no pain at this point she is afraid to move but she has no pain lying in bed. She has not been up to chair up with therapy yet. Vitals/I&O/Wt Last Vital Signs Temp 98.3 F 06/29/24 04:00 Pulse 86 06/29/24 04:00 Resp 17 06/29/24 04:00 BP 109/68 06/29/24 06:35 Pulse Ox 93 06/29/24 04:00 O2 Del Method Room Air 06/29/24 04:00 O2 Flow Rate 4 06/28/24 18:36 06/28/24 06/29/24 06/29/24 22:59 06:59 14:59 Intake Total 2100 / 2100 Output Total 650 / 650 200 / 850 Balance 1450 / 1450 -200 / 1250 Weight last 48 hrs Weight 191 lb 8 oz Weight 181 lb 4 oz Weight 160 lb Physical Exam 2 Narrative: Wounds clean dry intact. Bilateral lower extremities neurovasc intact. Urinary Catheter Management: Coude Latex: Cath Placed During This Visit: yes, but has since been removed by the nurse Reason for Continuing Indwelling Catheter: Decision to DC Catheter Urinary Catheter Date of Insertion: 06/28/24 Urinary Catheter Time of Insertion: 17:20 Date Urinary Catheter Removed: 06/29/24 Time Urinary Catheter Discontinued: 06:05 Data 06/28/24 21:46 06/28/24 14:31 A&P Assessment and plan (1) Closed fracture of left hip: Postop day #1 left hip nail. Up with physical therapy today. Qualifiers: Encounter type: initial encounter Qualified Code(s): S72.002A - Fracture of unspecified part of neck of left femur, initial encounter for closed fracture Attestations 2 Medical Necessity Statement*: Per primary service Coding Level of Care Code Acute Code for Chg Fwd Diagnoses Closed fracture of left hip, initial encounter S72.002A Encounter type: initial encounter
[2024-06-29 09:05] LABS: Basophils % 0.1 %; Hematocrit 26.7 % (36-47); Lymphocytes # 0.7 10^3/uL (0.8-4.8); Lymphocytes % 7.6 %; Mean Corpuscular HGB Conc 32.2 g/dL (30-55); Mean Corpuscular Hemoglobin 29.8 pg (27-33); Mean Corpuscular Volume 92.4 fl (85-98); Mean Platelet Volume 10.7 fL (7.4-10.4); Monocytes # 0.3 10^3/uL (0.2-0.9); Monocytes % 2.6 %; Neutrophils # 8.42 10^3/uL (1.8-7.7); Neutrophils % 89.2 %; Nucleated Red Blood Cells % 0 %; Platelet Count 171 10^3/cmm (157-399); Red Blood Count 2.89 10^6/uL (3.85-5.65); Red Cell Distribution Width 13.3 % (12.1-15.1); White Blood Count 9.45 10^3/uL (3.29-11.43)
[2024-06-29 09:29] LABS: Anion Gap 13.7 (5-19); Blood Urea Nitrogen 17 mg/dL (8-23); Carbon Dioxide 23 mmol/L (22-29); Chloride 107 mmol/L (98-107); Creatinine Clr Calc Pharmacy 51.4779; Glucose 189 mg/dL (65-115); Magnesium 1.9 mg/dL (1.7-2.3); Osmolality Calculated 297 mOsm/kg (285-295); Potassium 3.7 mmol/L (3.5-5.1); Sodium 140 mmol/L (136-145)
--- NOTE | 2024-06-29 09:36 | PC.CHAP ---
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 [] Patient/Family/Request visit [] Outpatient visit [] Follow-up visit [] Physician referral [] Code/Alert [x] Routine visit [] Staff referral [] Actively dying [] Patient sleeping [] Family support [] [] Out of room [] Palliative care [] [] Receiving care in room [] Pre-surgical visit [] Trauma [] Long length of stay [] ICU visit [] Other: Relational/Emotional Strength [x] Patient feels connected with others/family/visitors/staff [] Distress [] Loneliness/isolation [] Abandonment Spirituality of Patient [x] Person of Latanya [x] Attends Restoration of their Latanya [x] Believes in Prayer [x] Reads Bible or Hinduism materials [] There are Spiritual issues to be addressed 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 Interventions [x] Prayer [x] Active listening [] Non-anxious presence [x] Spiritual/emotional support [] Crisis/trauma care [] Spiritual counseling [] Bereavement support [] Provided bereavement packet [] Provided Bible/devotional materials [] Provided toy/stuffed animal, coloring book to patient or family member [] Provided Communion [] Anointing/[place] [] Salvation [x] Completed spiritual assessment [] Other: Impact on Illness or Injury [] Angry [] Fearful [] Anxious [] Often cries [] Exhaustion [] Unable to work [] Unable to attend jainism [] Unable to walk/stand [] Unable to read [] Unable to drive [] Unable to eat/drink [] Unable to sleep [] Unable to be with family [] Patient intubated [] Other: Summary Time spent with patient 5 min
[2024-06-29] MEDS: HYDROcodone-acetaminophen 5-325 mg Tablet 1 TAB PO ×2 (09:45→17:03)
--- NOTE | 2024-06-29 13:16 | P.PN_ITS ---
Subjective 2 Subjective: Seen this morning. Sitting up in bed with family at bedside. Hemoglobin 8.9 this morning. Admission hemoglobin was 12.2. I do see that 3 years ago she has some labs at our hospital where hemoglobin was 8-9 range. Vitals/I&O/Wt Last Vital Signs Temp 98.3 F 06/29/24 12:00 Pulse 99 06/29/24 12:00 Resp 18 06/29/24 12:00 BP 96/60 06/29/24 12:00 Pulse Ox 96 06/29/24 12:00 O2 Del Method Room Air 06/29/24 12:00 O2 Flow Rate 4 06/28/24 18:36 06/28/24 06/29/24 06/29/24 22:59 06:59 14:59 Intake Total 2100 / 2100 720 / 720 Output Total 650 / 650 200 / 850 Balance 1450 / 1450 -200 / 1250 720 / 720 Weight last 48 hrs Weight 86.863 kg Weight 82.214 kg Weight 72.575 kg Physical Exam 2 Narrative: General: Alert oriented x3, patient seen sitting up in bed HEENT: Normocephalic, atraumatic, EOMI, breathing normally. Cardio: Regular rate rhythm, normal S1-S2 no gross murmurs. Respiratory: Good bilateral air entry, no wheezes no rhonchi appreciated GI: Abdomen soft, nontender, nondistended, bowel sounds + Behavior: Appropriate and cooperative Extremities: Mild edema noted at left hip area. No evidence of bleeding. Urinary Catheter Management: Coude Latex: Cath Placed During This Visit: yes, but has since been removed by the nurse Reason for Continuing Indwelling Catheter: Decision to DC Catheter Urinary Catheter Date of Insertion: 06/28/24 Urinary Catheter Time of Insertion: 17:20 Date Urinary Catheter Removed: 06/29/24 Time Urinary Catheter Discontinued: 06:05 Data 06/29/24 08:42 06/29/24 08:42 A&P Assessment and plan (1) Hypertension: Qualifiers: Hypertension type: essential hypertension Qualified Code(s): I10 - Essential (primary) hypertension (2) Dyslipidemia: (3) Multiple closed pelvic fractures without disruption of pelvic ring: Qualifiers: Encounter type: initial encounter Qualified Code(s): S32.82XA - Multiple fractures of pelvis without disruption of pelvic ring, initial encounter for closed fracture (4) Closed fracture of left hip: Qualifiers: Encounter type: initial encounter Qualified Code(s): S72.002A - Fracture of unspecified part of neck of left femur, initial encounter for closed fracture Plan #Left hip fracture #Hypertension #Anxiety ? Continue as needed Xanax ? Consult orthopedic surgery. Plan to go to the OR later this afternoon with Dr. Cisse ? Check preop x-ray, EKG, preop labs CBC CMP magnesium, INR ? All labs and imaging studies ordered in the ER however results are pending at this time ? Placed on IV fluids normal saline 75 cc/h ? Continue antihypertensives as per home dose at this time. ? Morphine 2 mg every 4 hours as needed. ? PT consult will be discontinued. -Patient denies any chest pain shortness of breath at this time. She is not on insulin at home. ? Awaiting preop labs at this time -Patient did have a pelvic hematoma previously with her pelvic fracture and had acute blood loss anemia. Full code Due to prophylaxis: Heparin SQ twice daily, 06/29/2024 -Hemoglobin 8.6 this morning. Most likely secondary blood loss during the surgery ? Patient also borderline hypotensive this morning. Will order 1 L normal saline bolus and put back on normal saline 125 cc/h. ? Hold home antihypertensives at this time ? Continue morphine for pain ? Add hydrocodone and ketorolac as needed. ? Patient does have a history of a pelvic hematoma previously with her pelvic fracture and had acute blood loss anemia. Check reticulocyte count. I do not see any ecchymosis on her thigh. Patient was not on any anticoagulants prior to surgery. ? Will continue on DVT prophylaxis. ? Transfuse for hemoglobin less than 7. ? Recheck CBC at 6 PM. ? Patient could not work with physical therapy this morning secondary to hypotension. Attestations 2 Medical Necessity Statement*: L> 2 midnight stay for mgmt of hip fracture Diagnoses Essential hypertension I10 Hypertension type: essential hypertension Dyslipidemia E78.5 Multiple closed fractures of pelvis without disruption of pelvic ring, initial encounter S32.82XA Encounter type: initial encounter Closed fracture of left hip, initial encounter S72.002A Encounter type: initial encounter
[2024-06-29] MEDS: sodium chloride 0.9% 1,000 ML 999 ML IV (14:38)
[2024-06-29] MEDS: sodium chloride 0.9% 1,000 ML 125 ML IV (17:03)
[2024-06-29] MEDS: ketorolac 30 mg/mL INJ 15 MG IVP (17:11)
[2024-06-29 19:11] LABS: Basophils % 0.1 %; Hematocrit 23.5 % (36-47); Lymphocytes # 1.1 10^3/uL (0.8-4.8); Lymphocytes % 9.1 %; Mean Corpuscular HGB Conc 31.9 g/dL (30-55); Mean Corpuscular Hemoglobin 29.6 pg (27-33); Mean Corpuscular Volume 92.9 fl (85-98); Mean Platelet Volume 10.9 fL (7.4-10.4); Monocytes # 0.6 10^3/uL (0.2-0.9); Neutrophils # 10.31 10^3/uL (1.8-7.7); Neutrophils % 85.2 %; Nucleated Red Blood Cells % 0 %; Platelet Count 156 10^3/cmm (157-399); Red Blood Count 2.53 10^6/uL (3.85-5.65); Red Cell Distribution Width 13.5 % (12.1-15.1); White Blood Count 12.09 10^3/uL (3.29-11.43)
[2024-06-30] VITALS (17 sets, daily range): BP systolic 94–131; BP diastolic 58–91; PULSE 75–99; RESP 14–18; TEMP 36.5–37.2; O2SAT 94–99
[2024-06-30] MEDS: sodium chloride 0.9% 1,000 ML 125 ML IV ×2 (00:55→07:56)
[2024-06-30] MEDS: ketorolac 30 mg/mL INJ 15 MG IVP (04:39)
[2024-06-30] MEDS: heparin 5,000 unit/mL INJ 1 mL 5000 UNIT SUBCUT ×2 (04:40→16:06)
[2024-06-30 04:53] LABS: Basophils % 0.1 %; Lymphocytes # 1.4 10^3/uL (0.8-4.8); Lymphocytes % 20.1 %; Mean Corpuscular HGB Conc 31.8 g/dL (30-55); Mean Corpuscular Hemoglobin 29.8 pg (27-33); Mean Corpuscular Volume 93.6 fl (85-98); Mean Platelet Volume 10.7 fL (7.4-10.4); Monocytes # 0.5 10^3/uL (0.2-0.9); Monocytes % 6.5 %; Neutrophils # 5.14 10^3/uL (1.8-7.7); Neutrophils % 72.9 %; Nucleated Red Blood Cells % 0 %; Platelet Count 129 10^3/cmm (157-399); Red Blood Count 2.35 10^6/uL (3.85-5.65); Red Cell Distribution Width 13.9 % (12.1-15.1); White Blood Count 7.06 10^3/uL (3.29-11.43)
[2024-06-30 05:14] LABS: Blood Urea Nitrogen 24 mg/dL (8-23); Carbon Dioxide 24 mmol/L (22-29); Chloride 113 mmol/L (98-107); Creatinine Clr Calc Pharmacy 51.4779; Glucose 105 mg/dL (65-115); Magnesium 2.1 mg/dL (1.7-2.3); Osmolality Calculated 300 mOsm/kg (285-295); Sodium 143 mmol/L (136-145)
--- NOTE | 2024-06-30 07:04 | PM.PN ---
Subjective Subjective: Patient's resting complaint bed she says she slept well last night. She had difficulty getting up with physical therapy today but feels good this morning. Vitals/I&O/Wt Last Vital Signs Temp 98.4 F 06/30/24 04:00 Pulse 85 06/30/24 04:00 Resp 16 06/30/24 04:00 BP 101/60 06/30/24 04:00 Pulse Ox 96 06/30/24 04:00 O2 Del Method Room Air 06/30/24 04:00 O2 Flow Rate 4 06/28/24 18:36 06/29/24 06/30/24 06/30/24 22:59 06:59 14:59 Intake Total 1360 / 3080 983.333 / 4063.333 Balance 1360 / 3080 983.333 / 4063.333 Weight last 48 hrs Weight 197 lb 9.6 oz Weight 191 lb 8 oz Weight 181 lb 4 oz Weight 160 lb Physical Exam Narrative: Resting company in bed wound is clean dry and intact. Urinary Catheter Management: Coude Latex: Cath Placed During This Visit: yes, but has since been removed by the nurse Reason for Continuing Indwelling Catheter: Decision to DC Catheter Urinary Catheter Date of Insertion: 06/28/24 Urinary Catheter Time of Insertion: 17:20 Date Urinary Catheter Removed: 06/29/24 Time Urinary Catheter Discontinued: 06:05 Data 06/30/24 04:46 06/30/24 04:46 A&P Assessment and plan (1) Closed fracture of left hip: Postop day #2 left hip nail Up with physical therapy, weight-bear as tolerated Can start DVT prophylaxis for discharge. This could be aspirin Eliquis or Lovenox Qualifiers: Encounter type: initial encounter Qualified Code(s): S72.002A - Fracture of unspecified part of neck of left femur, initial encounter for closed fracture Attestations Medical Necessity Statement*: Per primary service Coding Level of Care Code Acute Code for [facility] Fwd Diagnoses Closed fracture of left hip, initial encounter S72.002A Encounter type: initial encounter
[2024-06-30] MEDS: cholecalciferol (vitamin D3) 1,000 unit Tablet 2000 UNIT PO (07:56)
[2024-06-30] MEDS: HYDROcodone-acetaminophen 5-325 mg Tablet 1 TAB PO ×2 (07:56→16:06)
--- NOTE | 2024-06-30 12:52 | PC.SOCIAL ---
IMM Updated Updated pt on IMM. No questions voiced. Provided pt a copy. Initialed, dated, & timed a copy & placed in chart.
--- NOTE | 2024-06-30 13:37 | P.PN_ITS ---
Subjective 2 Subjective: Seen today. Hemoglobin 7.0 today. Patient is sitting up in recliner overall feeling better. She says she was able to walk a little bit as well however it still hurts. Vitals/I&O/Wt Last Vital Signs Temp 98.1 F 06/30/24 13:35 Pulse 96 06/30/24 13:35 Resp 14 06/30/24 13:35 BP 123/81 06/30/24 13:35 Pulse Ox 98 06/30/24 13:35 O2 Del Method Room Air 06/30/24 11:51 O2 Flow Rate 4 06/28/24 18:36 06/29/24 06/30/24 06/30/24 22:59 06:59 14:59 Intake Total 1360 / 3080 983.333 / 4063.333 2060.833 / 2060.833 Balance 1360 / 3080 983.333 / 4063.333 2060.833 / 2060.833 Weight last 48 hrs Weight 89.63 kg Weight 86.863 kg Weight 82.214 kg Weight 72.575 kg Physical Exam 2 Narrative: General: Alert oriented x3, patient seen sitting up in bed HEENT: Normocephalic, atraumatic, EOMI, breathing normally. Cardio: Regular rate rhythm, normal S1-S2 no gross murmurs. Respiratory: Good bilateral air entry, no wheezes no rhonchi appreciated GI: Abdomen soft, nontender, nondistended, bowel sounds + Behavior: Appropriate and cooperative Extremities: Mild edema noted at left hip area. Urinary Catheter Management: Coude Latex: Cath Placed During This Visit: yes, but has since been removed by the nurse Reason for Continuing Indwelling Catheter: Decision to DC Catheter Urinary Catheter Date of Insertion: 06/28/24 Urinary Catheter Time of Insertion: 17:20 Date Urinary Catheter Removed: 06/29/24 Time Urinary Catheter Discontinued: 06:05 Data 06/30/24 04:46 06/30/24 04:46 A&P Assessment and plan (1) Hypertension: Qualifiers: Hypertension type: essential hypertension Qualified Code(s): I10 - Essential (primary) hypertension (2) Dyslipidemia: (3) Multiple closed pelvic fractures without disruption of pelvic ring: Qualifiers: Encounter type: initial encounter Qualified Code(s): S32.82XA - Multiple fractures of pelvis without disruption of pelvic ring, initial encounter for closed fracture (4) Closed fracture of left hip: Qualifiers: Encounter type: initial encounter Qualified Code(s): S72.002A - Fracture of unspecified part of neck of left femur, initial encounter for closed fracture Plan #Left hip fracture #Hypertension #Anxiety ? Continue as needed Xanax ? Consult orthopedic surgery. Plan to go to the OR later this afternoon with Dr. Cisse ? Check preop x-ray, EKG, preop labs CBC CMP magnesium, INR ? All labs and imaging studies ordered in the ER however results are pending at this time ? Placed on IV fluids normal saline 75 cc/h ? Continue antihypertensives as per home dose at this time. ? Morphine 2 mg every 4 hours as needed. ? PT consult will be discontinued. -Patient denies any chest pain shortness of breath at this time. She is not on insulin at home. ? Awaiting preop labs at this time -Patient did have a pelvic hematoma previously with her pelvic fracture and had acute blood loss anemia. Full code Due to prophylaxis: Heparin SQ twice daily, 06/29/2024 -Hemoglobin 8.6 this morning. Most likely secondary blood loss during the surgery ? Patient also borderline hypotensive this morning. Will order 1 L normal saline bolus and put back on normal saline 125 cc/h. ? Hold home antihypertensives at this time ? Continue morphine for pain ? Add hydrocodone and ketorolac as needed. ? Patient does have a history of a pelvic hematoma previously with her pelvic fracture and had acute blood loss anemia. Check reticulocyte count. I do not see any ecchymosis on her thigh. Patient was not on any anticoagulants prior to surgery. ? Will continue on DVT prophylaxis. ? Transfuse for hemoglobin less than 7. ? Recheck CBC at 6 PM. ? Patient could not work with physical therapy this morning secondary to hypotension. 06/30/2024/ -Hemoglobin 7.0 this morning. Ordered 2 unit packed RBC ? Stop IV fluids ? Continue pain medication ? Continue DVT prophylaxis ? Recheck CBC posttransfusion ? Continue to hold home antihypertensive ? If hemoglobin stable for at least 24 hours patient able to discharge from medical standpoint. ? Attestations 2 Medical Necessity Statement*: L> 2 midnight stay for mgmt of hip fracture complicated by acute blood loss anemia requiring blood transfusion. Diagnoses Essential hypertension I10 Hypertension type: essential hypertension Dyslipidemia E78.5 Multiple closed fractures of pelvis without disruption of pelvic ring, initial encounter S32.82XA Encounter type: initial encounter Closed fracture of left hip, initial encounter S72.002A Encounter type: initial encounter
[2024-06-30 23:44] LABS: Basophils % 0.3 %; Eosinophils % 0.4 %; Hematocrit 26.5 % (36-47); Lymphocytes # 1.5 10^3/uL (0.8-4.8); Lymphocytes % 22.5 %; Mean Corpuscular HGB Conc 32.8 g/dL (30-55); Mean Corpuscular Hemoglobin 29.5 pg (27-33); Mean Corpuscular Volume 89.8 fl (85-98); Mean Platelet Volume 10.6 fL (7.4-10.4); Monocytes # 0.4 10^3/uL (0.2-0.9); Monocytes % 5.4 %; Neutrophils # 4.76 10^3/uL (1.8-7.7); Neutrophils % 69.9 %; Nucleated Red Blood Cells % 0.4 %; Platelet Count 135 10^3/cmm (157-399); Red Blood Count 2.95 10^6/uL (3.85-5.65); Red Cell Distribution Width 14.8 % (12.1-15.1); White Blood Count 6.81 10^3/uL (3.29-11.43)
[2024-07-01] VITALS: BP 114/76; PULSE 83; RESP 17; TEMP 36.9; O2SAT 95
[2024-07-01] MEDS: ketorolac 30 mg/mL INJ 15 MG IVP (01:55)
[2024-07-01 04:00] VITALS: BP 154/103; PULSE 80; RESP 17; TEMP 36.8; O2SAT 93
[2024-07-01] MEDS: heparin 5,000 unit/mL INJ 1 mL 5000 UNIT SUBCUT (04:45)
[2024-07-01 05:21] LABS: Basophils % 0.3 %; Eosinophils # 0.1 10^3/uL (0.0-0.8); Eosinophils % 0.9 %; Hematocrit 26.2 % (36-47); Lymphocytes # 1.4 10^3/uL (0.8-4.8); Lymphocytes % 22.2 %; Mean Corpuscular HGB Conc 32.4 g/dL (30-55); Mean Corpuscular Hemoglobin 30.2 pg (27-33); Mean Corpuscular Volume 93.2 fl (85-98); Mean Platelet Volume 10.4 fL (7.4-10.4); Monocytes # 0.4 10^3/uL (0.2-0.9); Neutrophils # 4.36 10^3/uL (1.8-7.7); Neutrophils % 68.7 %; Nucleated Red Blood Cells % 0.3 %; Platelet Count 136 10^3/cmm (157-399); Red Blood Count 2.81 10^6/uL (3.85-5.65); Red Cell Distribution Width 15.4 % (12.1-15.1); White Blood Count 6.35 10^3/uL (3.29-11.43)
[2024-07-01 05:48] LABS: Anion Gap 9.9 (5-19); Blood Urea Nitrogen 23 mg/dL (8-23); Calcium 7.6 mg/dL (8.5-10.5); Carbon Dioxide 22 mmol/L (22-29); Chloride 114 mmol/L (98-107); Creatinine Clr Calc Pharmacy 52.3762; Glucose 97 mg/dL (65-115); Magnesium 2.1 mg/dL (1.7-2.3); Osmolality Calculated 298 mOsm/kg (285-295); Potassium 3.9 mmol/L (3.5-5.1); Sodium 142 mmol/L (136-145)
[2024-07-01 07:35] VITALS: BP 110/65; PULSE 80; RESP 18; TEMP 37.1; O2SAT 92
--- NOTE | 2024-07-01 07:43 | PM.PN ---
Subjective Subjective: Patient is doing better today. Her pain is more well-controlled. Hip is more comfortable. She is complaining about left knee pain but stated the same pain she is having before surgery. Likely has some knee arthritis. At this point she is potentially going to a long term Vitals/I&O/Wt Last Vital Signs Temp 98.8 F 07/01/24 07:35 Pulse 80 07/01/24 07:35 Resp 18 07/01/24 07:35 BP 110/65 07/01/24 07:35 Pulse Ox 92 07/01/24 07:35 O2 Del Method Room Air 07/01/24 07:35 O2 Flow Rate 4 06/28/24 18:36 06/30/24 07/01/24 07/01/24 22:59 06:59 14:59 Intake Total 1110 / 3170.833 Balance 1110 / 3170.833 Weight last 48 hrs Weight 197 lb 9.6 oz Weight 197 lb 9.6 oz Physical Exam Narrative: Physical exam dressing has little bit of saturation overall doing well though. Knee was examined some swelling to her but patient states same swelling that she had prior to her injury. She has some medial joint line tenderness. Urinary Catheter Management: Coude Latex: Cath Placed During This Visit: yes, but has since been removed by the nurse Reason for Continuing Indwelling Catheter: Decision to DC Catheter Urinary Catheter Date of Insertion: 06/28/24 Urinary Catheter Time of Insertion: 17:20 Date Urinary Catheter Removed: 06/29/24 Time Urinary Catheter Discontinued: 06:05 Data 07/01/24 04:48 07/01/24 04:48 A&P Assessment and plan (1) Closed fracture of left hip: Postop day #3 left hip nail. Up with physical therapy Patient likely has left knee osteoarthritis. Put ice on both hip and knee. Follow-up in Ortho clinic in 2 weeks. Discharge planning Qualifiers: Encounter type: initial encounter Qualified Code(s): S72.002A - Fracture of unspecified part of neck of left femur, initial encounter for closed fracture Attestations Medical Necessity Statement*: Per primary service Coding Level of Care Code Acute Code for [facility] Fwd Diagnoses Closed fracture of left hip, initial encounter S72.002A Encounter type: initial encounter
[2024-07-01] MEDS: HYDROcodone-acetaminophen 5-325 mg Tablet 1 TAB PO (09:41)
[2024-07-01] MEDS: cholecalciferol (vitamin D3) 1,000 unit Tablet 2000 UNIT PO (09:41)
[2024-07-01 10:50] LABS: SARS Covid-2 Antigen negative (Negative)
--- NOTE | 2024-07-01 11:07 | PM.DCS ---
Discharge Providers Date of Admission: 06/28/24 15:54 Date of Discharge: July 01, 2024 Attending Provider at Admission: Rae Gipson MD Attending Provider at Discharge: Ro Dahl MD Primary Care Provider: Marybeth Gutierrez MD Diagnoses at Discharge Discharge Diagnosis (1) Closed fracture of left hip: Status: Acute Qualifiers: Encounter type: initial encounter Qualified Code(s): S72.002A - Fracture of unspecified part of neck of left femur, initial encounter for closed fracture Reason for Visit Reason for Visit: left hip pain rotation Brief History: Collette Lemos is a 84 year old female with past medical history of hypertension. He presented to the hospital after having a mechanical fall secondary to getting hit by the bed. She states she got caught in the walkway of the automatic door and fell down off of the door smashed into her. Nausea and diarrhea constipation shortness of breath chest pain at this time. Otherwise healthy. Does not take any other medications besides benicar. Hospital Course Hospital Course #Left hip fracture #Hypertension #Anxiety ? Continue as needed Xanax ? Consult orthopedic surgery. Plan to go to the OR later this afternoon with Dr. Cisse ? Check preop x-ray, EKG, preop labs CBC CMP magnesium, INR ? All labs and imaging studies ordered in the ER however results are pending at this time ? Placed on IV fluids normal saline 75 cc/h ? Continue antihypertensives as per home dose at this time. ? Morphine 2 mg every 4 hours as needed. ? PT consult will be discontinued. -Patient denies any chest pain shortness of breath at this time. She is not on insulin at home. ? Awaiting preop labs at this time -Patient did have a pelvic hematoma previously with her pelvic fracture and had acute blood loss anemia. Full code Due to prophylaxis: Heparin SQ twice daily, 06/29/2024 -Hemoglobin 8.6 this morning. Most likely secondary blood loss during the surgery ? Patient also borderline hypotensive this morning. Will order 1 L normal saline bolus and put back on normal saline 125 cc/h. ? Hold home antihypertensives at this time ? Continue morphine for pain ? Add hydrocodone and ketorolac as needed. ? Patient does have a history of a pelvic hematoma previously with her pelvic fracture and had acute blood loss anemia. Check reticulocyte count. I do not see any ecchymosis on her thigh. Patient was not on any anticoagulants prior to surgery. ? Will continue on DVT prophylaxis. ? Transfuse for hemoglobin less than 7. ? Recheck CBC at 6 PM. ? Patient could not work with physical therapy this morning secondary to hypotension. 06/30/2024/ -Hemoglobin 7.0 this morning. Ordered 2 unit packed RBC ? Stop IV fluids ? Continue pain medication ? Continue DVT prophylaxis ? Recheck CBC posttransfusion ? Continue to hold home antihypertensive ? If hemoglobin stable for at least 24 hours patient able to discharge from medical standpoint. 07/01/24 Seen her at bedside this morning. She is doing well. Hemoglobin stable at 8.5. She will be discharged to subacute nursing facility for physical therapy. Need to recheck CBC in 3 days for follow-up of hemoglobin. Will do p.o. Eliquis 2.5 mg twice daily for 35 days for DVT prophylaxis post hip surgery. Physical Exam Narrative: General: Alert oriented x3, patient seen sitting up in bed HEENT: Normocephalic, atraumatic, EOMI, breathing normally. Cardio: Regular rate rhythm, normal S1-S2 no gross murmurs. Respiratory: Good bilateral air entry, no wheezes no rhonchi appreciated GI: Abdomen soft, nontender, nondistended, bowel sounds + Behavior: Appropriate and cooperative Extremities: Mild edema noted at left hip area. Urinary Catheter Management: Coude Latex: Cath Placed During This Visit: yes, but has since been removed by the nurse Reason for Continuing Indwelling Catheter: Decision to DC Catheter Urinary Catheter Date of Insertion: 06/28/24 Urinary Catheter Time of Insertion: 17:20 Date Urinary Catheter Removed: 06/29/24 Time Urinary Catheter Discontinued: 06:05 Discharge Data Studies Completed and Pending Completed Studies During Hospitalization Category Date Time Status XR chest 1V portable [id number] Stat Exams 06/28/24 13:17 Completed XR hip LT 2-3V wo/w pel* [id number] Routine Exams 06/28/24 18:17 Completed XR hip LT 2-3V wo/w pel* [id number] Stat Exams 06/28/24 12:55 Completed Radiology Impressions Chest X-Ray 06/28/24 13:17 IMPRESSION: 1. No acute cardiopulmonary finding. Laboratory Results WBC 6.35 10^3/uL (3.29-11.43) 07/01/24 04:48 RBC 2.81 10^6/uL (3.85-5.65) L 07/01/24 04:48 Hgb 8.50 g/dL (11.27-16.99) L 07/01/24 04:48 Hct 26.2 % (36-47) L 07/01/24 04:48 MCV 93.2 fl (85-98) 07/01/24 04:48 MCH 30.2 pg (27-33) 07/01/24 04:48 MCHC 32.4 g/dL (30-55) 07/01/24 04:48 RDW 15.4 % (12.1-15.1) H 07/01/24 04:48 Plt Count 136 10^3/cmm (157-399) L 07/01/24 04:48 MPV 10.4 fL (7.4-10.4) 07/01/24 04:48 Neut % (Auto) 68.7 % 07/01/24 04:48 Lymph % (Auto) 22.2 % 07/01/24 04:48 [place] % (Auto) 6.0 % 07/01/24 04:48 Eos % (Auto) 0.9 % 07/01/24 04:48 Baso % (Auto) 0.3 % 07/01/24 04:48 Neut # (Auto) 4.36 10^3/uL (1.8-7.7) 07/01/24 04:48 Lymph # (Auto) 1.4 10^3/uL (0.8-4.8) 07/01/24 04:48 [place] # (Auto) 0.4 10^3/uL (0.2-0.9) 07/01/24 04:48 Eos # (Auto) 0.1 10^3/uL (0.0-0.8) 07/01/24 04:48 Baso # (Auto) 0.0 10^3/uL (0.0-0.1) 07/01/24 04:48 Nucleated RBC % (auto) 0.3 % 07/01/24 04:48 Nucleated RBCs # 0.0 /100WBC 07/01/24 04:48 PT 14.20 SECONDS (12.1-14.9) 06/28/24 14:31 INR 1.06 (0.8-1.2) 06/28/24 14:31 Sodium 142 mmol/L (136-145) 07/01/24 04:48 Potassium 3.9 mmol/L (3.5-5.1) 07/01/24 04:48 Chloride 114 mmol/L (98-107) H 07/01/24 04:48 Carbon Dioxide 22 mmol/L (22-29) 07/01/24 04:48 Anion Gap 9.9 (5-19) 07/01/24 04:48 BUN 23 mg/dL (8-23) 07/01/24 04:48 Creatinine 0.4 mg/dL (0.5-0.9) L 07/01/24 04:48 GFR Calculation Not Reportable 07/01/24 04:48 Glucose 97 mg/dL (65-115) 07/01/24 04:48 Calculated Osmolality 298 mOsm/kg (285-295) H 07/01/24 04:48 Calcium 7.6 mg/dL (8.5-10.5) L 07/01/24 04:48 Magnesium 2.1 mg/dL (1.7-2.3) 07/01/24 04:48 Total Bilirubin 1.2 mg/dL (0.15-1.2) 06/28/24 14:31 AST 16 U/L (0-32) 06/28/24 14:31 ALT 11 U/L (0-33) 06/28/24 14:31 Alkaline Phosphatase 68 U/L (35-105) 06/28/24 14:31 Total Protein 5.8 g/dL (6.6-8.7) L 06/28/24 14:31 Albumin 3.5 g/dL (3.5-5.2) 06/28/24 14:31 Globulin 2.3 g/dL (1.3-4.6) 06/28/24 14:31 TSH 2.48 uIU/mL (0.27-4.20) 06/28/24 14:31 SARS-CoV-2 Ag (Rapid) negative (Negative) 07/01/24 09:36 Blood Type A Positive 06/28/24 14:31 Rho(D) Type Rh positive 06/28/24 14:31 Antibody Screen Negative 06/28/24 14:31 Crossmatch See Detail 06/28/24 14:31 Vitals Last Vital Signs Temp 98.8 F 07/01/24 07:35 Pulse 80 07/01/24 07:35 Resp 18 07/01/24 07:35 BP 110/65 07/01/24 07:35 Pulse Ox 92 07/01/24 07:35 O2 Del Method Room Air 07/01/24 07:35 O2 Flow Rate 4 06/28/24 18:36 Discharge Plan Discharge Patient Disposition: Home Health Service Condition: Stable Prescriptions: New hydrocodone-acetaminophen 5-325 mg Tablet 1 tab PO Q4H PRN (Reason: Moderate Pain) 7 Days Qty: 28 0RF Eliquis 2.5 mg tablet 2.5 mg PO BID Qty: 70 0RF Continued coenzyme Q10 [CoQ-10] 100 mg Capsule 100 mg PO DAILY acetaminophen 325 mg Tablet 650 mg PO Q4H PRN (Reason: mild pain) Qty: 0 0RF alprazolam 0.5 mg tablet 0.25 mg PO TID MDD must last 30 days PRN (Reason: Anxiety) [id number] [MegaRed Show Low-3 Krill Oil] 1,000-230-60 mg Capsule 1 cap PO DAILY ibuprofen 200 mg Tablet 200 mg PO Q6H PRN (Reason: Pain) cranberry 500 mg Capsule 500 mg PO DAILY Rx Instructions: administer with meals calcium carbonate 600 mg calcium (1,500 mg) Tablet 600 mg PO DAILY magnesium 250 mg Tablet See Rx Instructions .ROUTE .COMPLEX Rx Instructions: Take 250 mg by mouth 3 times weekly. cholecalciferol (vitamin D3) [Vitamin D3] 50 mcg (2,000 unit) Tablet 50 mcg PO DAILY Held olmesartan-hydrochlorothiazide [Benicar HCT] 20-12.5 mg Tablet 1 tab PO .QNOON Hold Instructions: soft BP Discharge Orders: Discharge Order (Routine); Ordered 07/01/24 Ordered By: Ro Dahl Other Ambulatory Orders: DME: Natalie (Order) Location: None Selected Ordered By: Rae Gipson DME: Andrea (Order) Location: None Selected Ordered By: Rae Gipson Referrals: [facility] ([facility]) [Outside] Marybeth Gutierrez MD [Primary Care Provider] - Chester Cisse DO [Physician] - 07/15/24 1:45 pm () Discharge Diet: Cardiac Discharge Activity: Increase activity as tolerated Patient Instructions: Acute Wound Care (DC), Opioid Safety, Post Anesthesia Care, Pain Management Activity Restrictions/Additional Instructions: You are being discharged from the hospital today during which time you have been under the care of Dr. Cisse. You had a left intertrochanteric fracture. You were treated for this injury with left intramedullary hip nail . You may resume you normal diet (including any special diets as directed by your primary doctor) as well as your home medications. You should follow up with you primary doctor if you have any questions regarding medication you took prior to your stay in the hospital. You may take your pain medication as prescribed. After the first few days, take your pain medication as needed. Do not drive or drink alcohol while taking your pain medication. Your injury may increase your risk of developing a blood clot,or DVT, in your arm or leg. This could potentially dislodge and travel to your lungs and become a life threatening condition called apulmonary embolus,or PE. You have been prescribed (aspirin, Eliquis for Lovenox) to be taken to prevent this. Frequent movement of the feet will also help prevent this from occurring. If you develop any new or worsening cough, chestpain, bloody sputum or shortness of breath, call 911 or go to the EmergencyRoom. Always keep your surgical incision/dressing clean and dry. If you experience increasing pain at your incision site, redness, swelling, increasing discharge, foul odors, or fevers (greater than 100.4), night sweats or chills you should call the office at the above number. If you feel this is an emergency you should be evaluated in the Emergency Department of a nearby hospital. Orthopedic Patient Instructions Summary: Weight Bearing: As tolerated Activity: As tolerated. Diet: Regular. Splint Care: Wound Care: Keep dressing clean and dry. Anticoagulation: May be Eliquis, aspirin or Lovenox Pain Medication: Take only as needed. Ice, rest and elevation will be of great benefit. Please plan to follow-up [facility] Dr Cisse in 2 weeks. You will need to call the clinic [phone] to schedule this visit. Thank you far allowing me to participate in your care. Do not hesitate to call the office with any questions or concerns. Discharge Attestations Time Spent in Discharge Care*: less than 30 min Status at Discharge: Overall status at discharge: patient is progressing back to baseline Quality Metrics Clinical Quality Measures [ No reported AMI, CVA or VTE this stay] Coding Level of Care Code Acute Code for [facility] Fwd Diagnoses Closed fracture of left hip, initial encounter S72.002A Encounter type: initial encounter Time Spent (min) 25
[2024-07-01 14:06] VITALS: BP 110/65; PULSE 80; RESP 18; TEMP 37.1; O2SAT 92
== END 2024-07-01 12:30 | disposition skilled nursing facility (03) | DRG 956 ==
LOC: ER 15:18 → MEDSURG 15:54
PROVIDERS: Internal Medicine; Orthopaedic Surgery; Admitting Provider Internal Medicine; Emergency Provider Family Medicine; PCP Family Medicine; Visit Provider Internal Medicine
PROC: 0QS736Z Reposition Left Upper Femur with Intramedullary Internal Fixation Device, Percutaneous Approach (ICD-10-PCS; CPT 27245; principal; 2024-06-28 17:35)
DX: S72.092A Other fracture of head and neck of left femur, initial encounter for closed fracture (principal); S32.82XA Multiple fractures of pelvis without disruption of pelvic ring, initial encounter for closed fracture; D62 Acute posthemorrhagic anemia; I10 Essential (primary) hypertension; F41.9 Anxiety disorder, unspecified; E78.5 Hyperlipidemia, unspecified; I95.9 Hypotension, unspecified; M17.12 Unilateral primary osteoarthritis, left knee; W20.8XXA Other cause of strike by thrown, projected or falling object, initial encounter; Y92.512 Supermarket, store or market as the place of occurrence of the external cause
CPT/HCPCS: 36415; 36430; 51702; 71045; 73502; 76000; 80048; 80053; 83735; 84443; 85014; 85018; 85025; 85610; 86850; 86900; 86920; 87426; 96372; 96374; 96375; 97110; 97116; 97161; 97167; 97530; 97535; 99285; C1713; C1776; J0131; J0690; J1100; J1644; J1885; J2270; J2405; J2704; J3010; J3490; J7030; P9016; P9040

== ENCOUNTER → 2024-07-15 14:11 | Outpatient (BNVA) | payer MEDICARE, SELFPAY | PROVIDERS: PCP Family Medicine; Visit Provider Orthopaedic Surgery | DX: S72.142A Displaced intertrochanteric fracture of left femur, initial encounter for closed fracture (principal); W18.09XA Striking against other object with subsequent fall, initial encounter; Y92.512 Supermarket, store or market as the place of occurrence of the external cause; Z48.89 Encounter for other specified surgical aftercare | CPT/HCPCS: 73502; 99024 ==

== ENCOUNTER 2024-07-23 15:57 | Emergency (ER) | payer MEDICARE, SELFPAY ==
[2024-07-23 16:13] VITALS: BP 180/77; PULSE 96; RESP 17; TEMP 37; O2SAT 99; BMI 32.1
--- NOTE | 2024-07-23 16:22 | ED_ITS ---
HPI - Extremity Problem 2 General: Chief complaint: Extremity Problem,Nontraumatic Stated complaint: redness/swelling left left, post sx Time Seen by Provider: 07/23/24 16:01 History of Present Illness: 84-year-old woman who recently had a lef t hip replacement. She has been in rehab and had been improving quite a bit. However she had had a great deal of swelling in her left leg. They have placed a dressing on there to compress and he did improve the swelling quite a bit. However when they took it off today she had redness and some pain in her rib and around her lower leg area. She is worried about infection or blood clot. She is on Eliquis and I discussed that clot is quite unlikely with that. She said no chest pain. No shortness of breath. No fevers. Related Data Home Medications Medication Instructions Recorded Confirmed coenzyme Q10 100 mg capsule 100 mg PO DAILY 12/19/19 07/23/24 (CoQ-10) olmesartan 20 1 tab PO .QNOON 12/19/19 07/23/24 mg-hydrochlorothiazide 12.5 mg tablet (Benicar HCT) calcium carbonate 600 mg PO DAILY 06/28/24 07/23/24 cholecalciferol (vitamin D3) 50 50 mcg PO DAILY 06/28/24 07/23/24 mcg (2,000 unit) tablet (Vitamin D3) cranberry 500 mg capsule 500 mg PO DAILY 06/28/24 07/23/24 krill 1,000 mg-omega-3 230 mg-dha 1 cap PO DAILY 06/28/24 07/23/24 60 [id number]-gwniwhrjz-astaxan capsule (MegaRed Dupo-3 Krill Oil) magnesium 250 mg tablet See Rx Instructions .Route .COMPLEX 06/28/24 07/23/24 alprazolam 0.25 mg tablet 0.25 mg PO Q8H 07/23/24 07/23/24 bisacodyl 5 mg tablet,delayed 5 mg PO DAILY PRN Constipation 07/23/24 07/23/24 release (Dulcolax (bisacodyl)) hydrocodone 5 mg-acetaminophen 325 1 tab PO Q4H 07/23/24 07/23/24 mg tablet magnesium hydroxide 400 mg/5 mL 30 ml PO Q3D PRN Constipation 07/23/24 07/23/24 oral suspension (Milk of Magnesia) sodium phosphates 19 gram-7 118 ml OH DAILY 07/23/24 07/23/24 gram/118 mL enema (Fleet Enema) Previous Rx's Medication Instructions Recorded acetaminophen 325 mg tablet 650 mg (2 x 325 mg) PO Q4H PRN 12/23/19 mild pain #0 tabs apixaban 2.5 mg tablet (Eliquis) 2.5 mg PO BID #70 tabs 07/01/24 cephalexin 500 mg tablet 500 mg PO TID 7 days #21 tabs 07/23/24 Allergies Allergy/AdvReac Type Severity Reaction Status Date / Time No Known Allergies Allergy Verified 07/15/24 14:15 Review of Systems 2 Narrative: Constitutional symptoms: Negative except as documented in HPI. Skin symptoms: Negative except as documented in HPI. Eye symptoms: Negative except as documented in HPI. ENMT symptoms: Negative except as documented in HPI. Respiratory symptoms: Negative except as documented in HPI. Cardiovascular symptoms: Negative except as documented in HPI. Gastrointestinal symptoms: Negative except as documented in HPI. Genitourinary symptoms: Negative except as documented in HPI. Musculoskeletal symptoms: Negative except as documented in HPI. Neurologic symptoms: Negative except as documented in HPI. Psychiatric symptoms: Negative except as documented in HPI. Endocrine symptoms: Negative except as documented in HPI. PFSH ED 2 PFSH: Medical History Multiple closed pelvic fractures without disruption of pelvic ring Hypertension Dyslipidemia Mitral valve regurgitation Aortic regurgitation Surgical History History of arthroplasty of right ankle due to fracture Family History Other CAD (coronary artery disease) Hypertension Social History Smoking and tobacco/nicotine status: never used tobacco/nicotine Alcohol intake: never Substance/Drug Use: never Lives independently: Yes Housing: House Physical Exam 2 Narrative: EXAM NARRATIVE: General: Alert, no acute distress. Skin: Warm, dry. Head: Normocephalic, atraumatic. Neck: Supple, trachea midline. Eye: Extraocular movements are intact. Ears, nose, mouth and throat: mucosa moist. Cardiovascular: Regular, Normal peripheral perfusion. Respiratory: Lungs are clear to auscultation, respirations are non-labored, breath sounds are equal, Symmetrical chest wall expansion. Gastrointestinal: Soft, Nontender, Non distended Musculoskeletal: Normal ROM, no deformity. Some swelling of the left lower extremity. There is a ring of redness around her lower calf from about 6 inches above her ankle to the ankle. This appears to either be a venous stasis dermatitis or cellulitis. She does not have signs of DVT. Neurological: Alert and oriented, No focal neurological deficit observed. Psychiatric: Cooperative, appropriate mood & affect. Course 2 Vital Signs: Vital signs: Vital Signs Temperature 98.6 F 07/23/24 16:13 Pulse Rate 96 07/23/24 16:13 Respiratory Rate 17 07/23/24 16:13 Blood Pressure 180/77 07/23/24 16:13 Pulse Oximetry 99 07/23/24 16:13 Oxygen Delivery Me thod Room Air 07/23/24 16:13 MDM - Extremity (Nontraumatic) Medical Decision Making Ultrasound of the left lower extremity: No deep vein thrombosis. This was reviewed and interpreted by myself the emergency room physician. I also reviewed the radiology report. Lab Review: Laboratory results were reviewed and interpreted by myself the emergency room physician. No leukocytosis. No anemia. No renal failure. ESR is not significantly elevated. CRP is just mildly elevated. I reviewed the patient's medical record. Reexamination: Patient remained stable. No increased work of breathing. No altered mental status. No focal motor deficits. Assessment and plan: Cellulitis ?Rocephin in the emergency room. Home on Keflex. Follow with Ortho - Discharged home - Discussed plan with patient. Answered any questions. - Evaluation and treatment of this problem were appropriate in the emergency setting. Lab Data 07/23/24 16:00 07/23/24 16:00 Radiology Impressions Venous Duplex 07/23/24 16:28 IMPRESSION: No evidence of deep vein thrombosis. Laboratory Results WBC 4.96 10^3/uL (3.29-11.43) 07/23/24 16:00 RBC 3.99 10^6/uL (3.85-5.65) 07/23/24 16:00 Hgb 11.70 g/dL (11.27-16.99) 07/23/24 16:00 Hct 37.7 % (36-47) 07/23/24 16:00 MCV 94.5 fl (85-98) 07/23/24 16:00 MCH 29.3 pg (27-33) 07/23/24 16:00 MCHC 31.0 g/dL (30-55) 07/23/24 16:00 RDW 14.6 % (12.1-15.1) 07/23/24 16:00 Plt Count 264 10^3/cmm (157-399) 07/23/24 16:00 MPV 9.8 fL (7.4-10.4) 07/23/24 16:00 Neut % (Auto) 61.5 % 07/23/24 16:00 Lymph % (Auto) 25.0 % 07/23/24 16:00 [place] % (Auto) 9.9 % 07/23/24 16:00 Eos % (Auto) 3.0 % 07/23/24 16:00 Baso % (Auto) 0.2 % 07/23/24 16:00 Neut # (Auto) 3.05 10^3/uL (1.8-7.7) 07/23/24 16:00 Lymph # (Auto) 1.2 10^3/uL (0.8-4.8) 07/23/24 16:00 [place] # (Auto) 0.5 10^3/uL (0.2-0.9) 07/23/24 16:00 Eos # (Auto) 0.2 10^3/uL (0.0-0.8) 07/23/24 16:00 Baso # (Auto) 0.0 10^3/uL (0.0-0.1) 07/23/24 16:00 Nucleated RBC % (auto) 0 % 07/23/24 16:00 Nucleated RBCs # 0.0 /100WBC 07/23/24 16:00 ESR 11 mm/hr (0-15) 07/23/24 16:00 Sodium 140 mmol/L (136-145) 07/23/24 16:00 Potassium 3.8 mmol/L (3.5-5.1) 07/23/24 16:00 Chloride 103 mmol/L (98-107) 07/23/24 16:00 Carbon Dioxide 27 mmol/L (22-29) 07/23/24 16:00 Anion Gap 13.8 (5-19) 07/23/24 16:00 BUN 13 mg/dL (8-23) 07/23/24 16:00 Creatinine 0.5 mg/dL (0.5-0.9) 07/23/24 16:00 GFR Calculation Not Reportable 07/23/24 16:00 Glucose 118 mg/dL (65-115) H 07/23/24 16:00 Calculated Osmolality 291 mOsm/kg (285-295) 07/23/24 16:00 Calcium 9.1 mg/dL (8.5-10.5) 07/23/24 16:00 Total Bilirubin 1.1 mg/dL (0.15-1.2) 07/23/24 16:00 AST 19 U/L (0-32) 07/23/24 16:00 ALT 15 U/L (0-33) 07/23/24 16:00 Alkaline Phosphatase 107 U/L (35-105) H 07/23/24 16:00 C-Reactive Protein 11.4 mg/L (0.0-4.9) H 07/23/24 16:00 Total Protein 6.4 g/dL (6.6-8.7) L 07/23/24 16:00 Albumin 3.9 g/dL (3.5-5.2) 07/23/24 16:00 Globulin 2.5 g/dL (1.3-4.6) 07/23/24 16:00 All radiology interpretation(s) finalized by discharge Discharge Plan Discharge Patient Disposition: Home Clinical Impression: Cellulitis Condition: Stable Prescriptions: New cephalexin 500 mg tablet 500 mg PO TID 7 Days Qty: 21 0RF No Action coenzyme Q10 [CoQ-10] 100 mg Capsule 100 mg PO DAILY olmesartan-hydrochlorothiazide [Benicar HCT] 20-12.5 mg Tablet 1 tab PO .QNOON Hold Instructions: soft BP acetaminophen 325 mg Tablet 650 mg PO Q4H PRN (Reason: mild pain) Qty: 0 0RF [id number]-ast [MegaRed Dupo-3 Krill Oil] 1,000-230-60 mg Capsule 1 cap PO DAILY cranberry 500 mg Capsule 500 mg PO DAILY Rx Instructions: administer with meals calcium carbonate 600 mg calcium (1,500 mg) Tablet 600 mg PO DAILY magnesium 250 mg Tablet See Rx Instructions .ROUTE .COMPLEX Rx Instructions: Take 250 mg by mouth 3 times weekly. cholecalciferol (vitamin D3) [Vitamin D3] 50 mcg (2,000 unit) Tablet 50 mcg PO DAILY Eliquis 2.5 mg tablet 2.5 mg PO BID Qty: 70 0RF hydrocodone-acetaminophen 5-325 mg tablet 1 tab PO Q4H alprazolam 0.25 mg tablet 0.25 mg PO Q8H magnesium hydroxide [Milk of Magnesia] 400 mg/5 mL Suspension 30 ml PO Q3D PRN (Reason: Constipation) Fleet Enema 19-7 gram/118 mL Enema 118 ml OH DAILY bisacodyl [Dulcolax (bisacodyl)] 5 mg Tablet,Delayed Release (Dr/Ec) 5 mg PO DAILY PRN (Reason: Constipation) Discharge Orders: Discharge ED (Routine); Ordered 07/23/24 Ordered By: Peggy Burgos Referrals: Marybeth Gutierrez MD [Primary Care Provider] - Discharge Diet: Usual diet Discharge Activity: Increase activity as tolerated Patient Instructions: Cellulitis (ED), Opioid Safety, Pain Management Activity Restrictions/Additional Instructions: Thank you for choosing [facility] for your healthcare needs today. Please realize this is an emergency room and that we are providing you with a medical screening exam and this may not be complete and all inclusive of all the testing and or work up that you may need to determine your ailment or severity of your illness. You have been screened and evaluated and felt safe for discharge. Health conditions do change or evolve sometimes and as such it is important that you follow up with your Primary Doctor to be re checked, 3-5 days is a general good time frame for follow up. You are always welcome to return to the ED for re assessment if your symptoms are worsening or you have new concerns Coding Level of Care Code ED Master Esthetician for Nancy Orozco
--- NOTE | 2024-07-23 16:28 | USR_ITS ---
PROCEDURE INFORMATION: Exam: US Duplex Left Lower Extremity Veins, Limited Exam date and time: 07/23/2024 4:55 PM Age: 84 years old Clinical indication: Edema, localized; Lower extremity, left; Additional info: Left-sided calf pain and swelling concern for dvt TECHNIQUE: Imaging protocol: Real-time duplex ultrasound of the left extremity with 2-D garrett scale, color Doppler flow and spectral waveform analysis including responses to compression and other maneuvers (when performed) with image documentation. Limited exam focused on the left lower extremity veins. COMPARISON: CT abdomen pelvis wo con [id number] 12/22/2019 12:42 PM FINDINGS: Left deep veins: Unremarkable. The common femoral, femoral, proximal profunda femoral and popliteal veins as well as the visualized deep veins of the lower leg are patent without thrombus. Normal Doppler waveforms. Normal compressibility and/or augmentation response. Superficial veins: Greater saphenous vein at the saphenofemoral junction is patent without thrombus. Soft tissues: Unremarkable. US/CV venous duplex [facility] [id number] IMPRESSION: No evidence of deep vein thrombosis.
[2024-07-23 16:35] LABS: Basophils % 0.2 %; Eosinophils # 0.2 10^3/uL (0.0-0.8); Hematocrit 37.7 % (36-47); Lymphocytes # 1.2 10^3/uL (0.8-4.8); Mean Corpuscular Hemoglobin 29.3 pg (27-33); Mean Corpuscular Volume 94.5 fl (85-98); Mean Platelet Volume 9.8 fL (7.4-10.4); Monocytes # 0.5 10^3/uL (0.2-0.9); Monocytes % 9.9 %; Neutrophils # 3.05 10^3/uL (1.8-7.7); Neutrophils % 61.5 %; Nucleated Red Blood Cells % 0 %; Platelet Count 264 10^3/cmm (157-399); Red Blood Count 3.99 10^6/uL (3.85-5.65); Red Cell Distribution Width 14.6 % (12.1-15.1); White Blood Count 4.96 10^3/uL (3.29-11.43)
[2024-07-23 16:39] LABS: Erythrocyte Sedimentation Rate 11 mm/hr (0-15)
[2024-07-23 17:07] LABS: Alanine Aminotransferase 15 U/L (0-33); Albumin Level 3.9 g/dL (3.5-5.2); Alkaline Phosphatase 107 U/L (35-105); Anion Gap 13.8 (5-19); Aspartate Amino Transferase 19 U/L (0-32); Blood Urea Nitrogen 13 mg/dL (8-23); C Reactive Protein 11.4 mg/L (0.0-4.9); Calcium 9.1 mg/dL (8.5-10.5); Carbon Dioxide 27 mmol/L (22-29); Chloride 103 mmol/L (98-107); Creatinine Clr Calc Pharmacy 50.3153; Globulin 2.5 g/dL (1.3-4.6); Glucose 118 mg/dL (65-115); Osmolality Calculated 291 mOsm/kg (285-295); Potassium 3.8 mmol/L (3.5-5.1); Sodium 140 mmol/L (136-145); Total Bilirubin 1.1 mg/dL (0.15-1.2); Total Protein 6.4 g/dL (6.6-8.7)
[2024-07-23] MEDS: cefTRIAXone 1,000 mg SDV 1000 MG IVP (18:00)
--- NOTE | 2024-07-23 18:23 | PC.NURSE ---
this nurse attempted to call report to [facility] twice and got no answer.
[2024-07-23 19:33] VITALS: BP 158/78; PULSE 93; RESP 16; O2SAT 98
[2024-07-23 20:34] VITALS: BP 161/74; PULSE 95; RESP 16; O2SAT 99
== END 2024-07-23 20:32 | disposition home or self-care (01) ==
PROVIDERS: Emergency Provider Emergency Medicine; PCP Family Medicine
DX: L03.116 Cellulitis of left lower limb (principal); Z79.01 Long term (current) use of anticoagulants; I10 Essential (primary) hypertension; E78.5 Hyperlipidemia, unspecified
CPT/HCPCS: 80053; 85025; 85651; 86140; 93971; 96374; 99284; J0696

== ENCOUNTER → 2024-09-09 15:44 | Outpatient (BNVA) | payer MEDICARE, SELFPAY | PROVIDERS: PCP Family Medicine; Visit Provider Orthopaedic Surgery | DX: Z48.89 Encounter for other specified surgical aftercare (principal); S72.002A Fracture of unspecified part of neck of left femur, initial encounter for closed fracture; X58.XXXA Exposure to other specified factors, initial encounter | CPT/HCPCS: 73502; 99024 ==

== ENCOUNTER → 2024-12-09 15:05 | Outpatient (BNVA) | payer MEDICARE, SELFPAY | PROVIDERS: PCP Family Medicine; Visit Provider Orthopaedic Surgery | DX: Z48.89 Encounter for other specified surgical aftercare (principal); S72.002A Fracture of unspecified part of neck of left femur, initial encounter for closed fracture; W10.8XXA Fall (on) (from) other stairs and steps, initial encounter | CPT/HCPCS: 73502; 99213 ==

== ENCOUNTER 2025-01-05 13:18 | Outpatient (RCR) | payer MEDICARE, SELFPAY | END 2025-01-08 23:59 | disposition home or self-care (01) | LOC: SPT 13:18 | PROVIDERS: Visit Provider Orthopaedic Surgery | DX: M25.552 Pain in left hip (principal) | CPT/HCPCS: 97161 ==

== ENCOUNTER 2025-01-09 05:00 | Outpatient (RCR) | payer MEDICARE, SELFPAY | END 2025-02-07 23:59 | disposition home or self-care (01) | LOC: SPT 05:00 | PROVIDERS: Visit Provider Orthopaedic Surgery | DX: M25.552 Pain in left hip (principal); G89.29 Other chronic pain | CPT/HCPCS: 97110 ==

== ENCOUNTER 2025-02-08 05:00 | Outpatient (RCR) | payer MEDICARE, SELFPAY | END 2025-03-10 23:59 | disposition home or self-care (01) | LOC: SPT 05:00 | PROVIDERS: Visit Provider Orthopaedic Surgery | DX: M25.552 Pain in left hip (principal); G89.29 Other chronic pain | CPT/HCPCS: 97110; 97164 ==

== ENCOUNTER 2025-03-11 05:00 | Outpatient (RCR) | payer MEDICARE, SELFPAY | END 2025-04-08 09:37 | disposition home or self-care (01) | LOC: SPT 05:00 | PROVIDERS: Visit Provider Orthopaedic Surgery | DX: M25.552 Pain in left hip (principal); G89.29 Other chronic pain | CPT/HCPCS: 97110 ==